=== PATIENT | male | born 1940 | race Caucasian/White ===

== ENCOUNTER 2017-05-09 17:45 | Inpatient (IN) ==
[2017-05-09] MEDS ORDERED: LORazepam 0.5 MG TABLET PO PRN (18:29)
[2017-05-09] MEDS ORDERED: HALOPERIDOL 0.5 MG TABLET PO PRN (18:29)
[2017-05-09] MEDS ORDERED: HALOPERIDOL 5 MG/ML INJECTION IM PRN (18:29)
[2017-05-09 18:31] VITALS: BMI 25.8
[2017-05-09] MEDS ORDERED: NITROGLYCERIN 0.4 MG SUBLINGUAL TABLET SL PRN (20:45)
[2017-05-09] MEDS ORDERED: NON-FORMULARY MEDICATION 1 EACH EACH (Oxybutynin Chloride [Oxybutynin Chloride] 5 MG) PO SCH (21:00)
[2017-05-09] MEDS: PRAVASTATIN 40 MG TABLET PO SCH (21:35)
[2017-05-10] MEDS: CARVEDILOL 6.25 MG TABLET PO SCH ×2 (08:32→17:14)
[2017-05-10] MEDS: FINASTERIDE 5 MG TABLET PO SCH (08:32)
[2017-05-10] MEDS: TAMSULOSIN 0.4 MG CAPSULE PO SCH (08:33)
[2017-05-10] MEDS ORDERED: TAMSULOSIN HCL 0.4 MG PO SCH (09:00)
--- NOTE | 2017-05-10 11:12 | History & Physical Report ---
History of Present Illness Date: 05/10/17 Chief complaint: worsening depression and paranoia HPI: Mr. Hensley is a 76-year-old male who resides in [place] with his . He was transferred here from [facility] emergency room after he was seen there for frequent falls. Patient has a history of spinal stenosis which causes his legs to go out from under him while he is walking. He attributes this to his frequent falls. He admits in the emergency room that he was concerned with himself mentally. He has not attempted suicide but has had frequent suicidal thoughts. Patient's had reported that patient has become increasingly more paranoid and delusional over the past 2 months. He believes someone is trying to take their home and he has called police several times even hired an washer hand. Despite reassurance that the house is not being taken, patient does not believe anyone. Patient does tell me that he thinks he would be better off in a shelter so he would not be a burden to his . He states he does not have good quality of life because he cannot do the things he enjoys such as hunting and fishing and golfing. He states "all I can do is watch TV, what kind of quality of life is that?" Patient has been seen outpatient at [facility] last week. This was his first meeting. In review of the chart, there is also information about patient obtaining a gun unbeknownst to his , after she removed all the guns from the house. Apparently she found a receipt for the gun he had purchased. In the emergency room, patient had basic labs and urinalysis and CT head performed. See results below. Review of Systems All systems PM: 10-point ROS was reviewed, no additional remarkable complaints except (back, leg and ankle pain related to spinal stenosis. Arthritis to hands. Blind in the right eye. Depression. He does also report that he straight catheters several times a day.) [facility] Medical history Hypertension Coronary artery disease (CABG 5 in [address] 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 Manuel in [place] Medications Home Medications Medication Instructions Recorded Confirmed Type Carvedilol [Carvedilol] 6.25 mg PO 05/09/17 05/09/17 History Finasteride [Proscar] 5 mg PO DAILY 05/09/17 05/09/17 History Nitroglycerin 0.4 mg SL PRN 05/09/17 05/09/17 History Oxybutynin Chloride 5 mg PO TID 05/09/17 05/09/17 History Pravastatin [Pravachol] 40 mg PO HS 05/09/17 05/09/17 History Tamsulosin HCl 0.4 mg PO DAILY 05/09/17 05/09/17 History Aspirin Chewable [ASA] 81 mg PO DAILY 05/10/17 05/10/17 History Allergies Allergy/AdvReac Type Severity Reaction Status Date / Time Penicillins Allergy Verified 05/10/17 02:51 Exam Vital Signs: Temperature 97.9 F 05/10/17 07:49 Pulse Rate 59 L 05/10/17 07:49 Respiratory Rate 18 05/10/17 07:49 Blood Pressure 155/67 H 05/10/17 07:49 Pulse Oximetry 98 05/10/17 07:49 Height/Weight/BMI: Height 1.75 m Weight 79.3 kg Body Mass Index 25.8 - Constitutional Present: no acute distress, well nourished, well developed - Routine HEENT Exam Head: Present: normocephalic, atraumatic Eye: Absent: PERRL (right eye with slight disconjugate gaze and opaque appearance to the cornea.), periorbital swelling ENT: Present: mucous membranes moist. Absent: dentition normal (edentulous. He usually wears dentures) - Routine Neck Exam Present: supple. Absent: lymphadenopathy, thyromegaly - Routine Respiratory Exam Present: CTA bilaterally. Absent: wheezes - Routine Cardiovascular Exam Present: RRR. Absent: murmur - Routine Abdominal Exam Present: soft, normoactive bowel sounds, non distended. Absent: tenderness - Routine Extremities Exam Present: no edema, normal capillary refill Comments: Arthritic changes especially to the thumbs bilaterally - Routine Skin Exam Present: dry, warm, wounds (large scabs on the right forearm and bandage to the left elbow.) - Routine Neurological Exam Present: alert, oriented X3, abnormal gait (slowed and stooped), moving all extremities, normal tone, normal speech. Absent: pronator drift, altered mental status, facial asymmetry Cranial nerves III through XII intact - Routine Psychiatric Exam Present: normal affect, cooperative Results - Labs Labs: Labs from 05/09/17 performed at [facility] ER WBC 6.3 RBC 5.3 hemoglobin 17.6 hematocrit 52.5 platelets 182 Urinalysis negative except trace blood and moderate leuks 1+ bacteria Creatinine 1.09, BUN 18, glucose 96, sodium 136, potassium 4.0, chloride 102, CO2 26, calcium 9.3, total bili 1.3, AST 40, L2 25 Drug of abuse screen is negative - Imaging and Cardiology CT scan - head Additional comments: 05/09/17-CT head without contrast on [facility] for [facility] Findings: The brain parenchyma demonstrates. Ventricular and subcortical areas of low attenuation most consistent with chronic ischemic microvascular disease.Occupying mass or shift of midline structures is evident. Intracranial hemorrhage or acute territorial infarct is evident. Impression no acute intracranial process. Assessment and Plan (1) Severe depression Current visit: Yes Status: Acute Assessment and Plan: Assessment Delusions and paranoia associated with severe depression Alcohol use Spinal stenosis causing chronic low back and lower extremity pain Hypertension Coronary artery disease (CABG 5 in March [address] 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 We'll need to monitor patient closely for alcohol withdrawal. PRN Serax and Ativan orders entered. Start thiamine, folate and multivitamin. Suspect he will have increased pain given he will not be able to medicate with alcohol. Will make acetaminophen available when necessary. Might consider scheduling this if he is having quite a bit of pain. Patient may self catheter as needed. Resuscitation Status: Full Code - Physician Narriative Physician: Kristen Gonzalez MD Narriative: 05/10/17 19:10 I have independently evaluated and examined this patient. I reviewed the chart, the patient's history, and the CLOUD PHYSICIST/PA's documented findings as above. We discussed and formulated the assessment and plan as above with additions as below: Mr. Hensley was hospitalized with worsening depressive symptoms and paranoia as described above. 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 In recent years he's also had major surgeries including a AAA repair and cardiac bypass surgery. He reported all "just too much". On examination the patient is pleasant and talkative. He has very minor ptosis on the right and the right pupil is larger than the left and does not react to light. EOMI, tongue midline, facial structures otherwise symmetric. Respirations nonlabored, breath sounds clear Cardiac rhythm regular Degenerative changes in the joints of the hand with some ulnar subluxation at the first MTPs Sensation intact 4 extremities although diminished below his knees by patient report to light touch, motor tone is normal but power is diminished especially in the lower extremities is unable to hold his legs off the bed against gentle resistance, has diminished dorsiflexion bilaterally with retained plantar flexion. Ash Handler are 4-/5, no drift of the upper extremities. Results from outside hospital ([facility]) reviewed; hemoglobin slightly elevated suggesting hemoconcentration. CT without acute process although chronic changes described. Lipids pending. Continue home medications for chronic medical problems, reassess hemoglobin and several days due to concern that patient may be somewhat hemoconcentrated on admission. In addition to above problems would include: #1 ambulatory dysfunction with falls. Hospital Course Summary Disclaimer: The visit summary below is not to be considered part of the above Progress Note. Hospital Course: Assessment Delusions and paranoia associated with severe depression Alcohol use Spinal stenosis causing chronic low back and lower extremity pain Hypertension Coronary artery disease (CABG 5 in March [address] 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 We'll need to monitor patient closely for alcohol withdrawal. PRN Serax and Ativan orders entered. Start thiamine, folate and multivitamin. Suspect he will have increased pain given he will not be able to medicate with alcohol. Will make acetaminophen available when necessary. Might consider scheduling this if he is having quite a bit of pain. Patient may self catheter as needed.
[2017-05-10] MEDS: ASPIRIN 81 MG CHEWABLE TABLET PO SCH (11:34)
[2017-05-10] MEDS ORDERED: ACETAMINOPHEN 500 MG TABLET PO PRN (11:47)
[2017-05-10] MEDS ORDERED: OXAZEPAM 30 MG CAPSULE PO PRN (11:53)
[2017-05-10] MEDS: DULOXETINE 30 MG CAPSULE PO SCH (14:28)
--- NOTE | 2017-05-10 14:41 | 24 Hour Neuropsychiatic Eval ---
Date of Admission: 05/09/17 17:45 Chief complaint: SI, psychosis History of Present Illness: Patient is a 76-year-old , retired male who was admitted to [facility] on 05/09/[address] [facility]. Patient lives in [place] with his . He went to ED due to multiple falls and while there endorsed SI, paranoia reported by . On interview, patient is pleasant and cooperative. He reports being very depressed, worse for the past year, exacerbated by pain due to stenosis and lifestyle changes due to this, including loss of interests/activities/ socialization. His continues to work/travel. He endorses low energy, low appetite with weight loss, suicidal thoughts but no intent/plan. He denies any psych history prior to 4 years ago when he began having chronic medical issues. He denies any psychotropic use. He went to [facility] for an evaluation but "told them he didn't want any harmful meds." He reports drinking 4-5 beers daily and denies any hx of withdrawal symptoms or seizures. However, seizures are listed in past medical history so must clarify this with someone other than patient. He does report being a cigar smoker (3-4/ day) for 40+ years though not currently. He denies other drug use or hx of substance use treatment. His has reported increasing paranoia, delusions that someone is trying to take the home - he has called the police, hired an deputy county attorney. He bought a gun without his 's knowledge after she removed them all from the house (he used to [place]); she found the receipt. He denies AVH. 05/09/17-CT head without contrast on [facility]: The brain parenchyma demonstrates. Ventricular and subcortical areas of low attenuation most consistent with chronic ischemic microvascular disease.Occupying mass or shift of midline structures is evident. Intracranial hemorrhage or acute territorial infarct is evident. Impression no acute intracranial process. Depression: Loss of Interest in Activities, Isolating Oneself From Friends and Family, Loss of Energy, Feelings of Worthlessness, Recurrent Thoughts of or Suicide, Changes in Appetite, Significant Weight Loss, Back Pain, Hopelessness, Unhappiness Psychosis: Delusions PFSH Patient Stated Medical History Cerebrovascular Accident Yes Seizures Yes Other HEENT Yes: detached retina -blind R eye, loss of vision L eye Congestive Heart Failure Yes Coronary Artery Disease Yes Hypertension Yes Chronic Obstructive Pulmonary Yes Disease (COPD) Gastroesophageal Reflux Yes Disease Hepatitis Yes Ulcer Yes Hx Kidney Stones Yes Other Yes: self cath 2-3 times daily Clotting Problems Yes: hx of DVT Osteoarthritis Yes Depression Yes Clinic Medical History Severe depression (Acute Medical) Surgical History: AAA repair, appendectomy, CABG 5 (2012), cholecystectomy, gastric bypass, thyroidectomy Family History: Denies any family history of mental illness - Social History Smoking status: Former smoker (previously smoked cigars. 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 Manuel in [place] Strengths: supportive , previously high-functioning, good verbal communication, wants help Review of Systems All systems: reviewed and no additional remarkable complaints except as stated - Constitutional Constitutional: Present: as per HPI, fatigue, headache(s) (mild currently), weakness (and multiple falls), weight loss - EENMT Eyes: Present: loss of vision (in R eye due to detached retina) Balance: Present: other (frequent falls recently) - Musculoskeletal Musculoskeletal: Present: back pain (due to stenosis) - Integumentary/Breasts Integumentary: Present: lesions (healing, from falls) - Neurological Neurological: Present: frequent falls - Psychiatric Psychiatric: Present: anhedonia, behavioral changes, depression, hopelessness, paranoia Mental Status Exam Vitals: Last Vital Signs Temp 97.9 F 05/10/17 07:49 Pulse 59 L 05/10/17 07:49 Resp 18 05/10/17 07:49 BP 155/67 H 05/10/17 07:49 Pulse Ox 98 05/10/17 07:49 Height: 1.75 m Weight: 79.3 kg - Mental Status Exam Muscle Strength/Tone: Weak Dressing: Casual Grooming: Good Attitude: Cooperative, Guarded (in regards to paranoia, gun, etc. reported by ) Motor Activity: Retardation Eye Contact: Good Speech: Normal Volume: Normal Rhythm: Appropriate Rhythm Sensory: Alert Orientation: Oriented X4 Mood: Depressed Affect: Sad, Depressed Rate of Thoughts: Appropriate Rate Thought Organization: Organized Associations: Intact Abstract Reasoning: Intact, able to abstract Thought Content: Delusions, Ruminations, Hopelessness, Helplessness, Worthlessness, Paranoia, Somatic Concerns Perception/Psychotic: Perception Normal Language: Naming Intact Fund of Knowledge: Appropriate Memory: Grossly Intact Suicidal Ideation: Persistent Homicidal Ideation: Denies Insight: Impaired Judgement: Impaired Impulse Control: Good Assessment and Plan (1) Major depressive disorder, single episode, severe with psychotic features Current visit: Yes Status: Acute R/O Major neurocognitive disorder (2) Alcohol use disorder Current visit: Yes Status: Acute (3) Spinal stenosis Current visit: Yes Status: Acute (4) Hypertension Current visit: Yes Status: Acute (5) CAD (coronary artery disease) Current visit: Yes Status: Acute (6) CHF (congestive heart failure) Current visit: Yes Status: Acute (7) COPD (chronic obstructive pulmonary disease) Current visit: Yes Status: Acute (8) History of hypothyroidism Current visit: Yes Status: Acute (9) History of pancreatitis Current visit: Yes Status: Acute (10) Chronic kidney disease Current visit: Yes Status: Acute (11) Right retinal detachment Current visit: Yes Status: Acute (12) History of hepatitis Current visit: Yes Status: Acute (13) History of kidney stones Current visit: Yes Status: Acute Admit to [facility] for evaluation and stabilization; maintain safety and elopement precautions. Review/order following labs done in outside hospital: CBC, CMP, TSH, UA, Vitamin B12 and folate levels. Obtain further collateral history from - will speak to her regarding searching home for more guns, removing all medications from patient's access. Plan to start Cymbalta 30mg PO daily to target mood, pain and monitor response. May also need antipsychotic. Will continue to monitor closely for signs of alcohol withdrawal.
[2017-05-10] MEDS ORDERED: MAG-AL + SIM ORAL LIQUID 30ml PO PRN (17:11)
[2017-05-10] MEDS: LATANOPROST 0.005% EYE DROPS 2.5ml LEFT EYE SCH (21:20)
[2017-05-10] MEDS: PRAVASTATIN 40 MG TABLET PO SCH (21:20)
[2017-05-11] MEDS: FINASTERIDE 5 MG TABLET PO SCH (08:17)
[2017-05-11] MEDS: CARVEDILOL 6.25 MG TABLET PO SCH ×2 (08:17→17:23)
[2017-05-11] MEDS: EYE LEFT EYE SCH (08:17)
[2017-05-11] MEDS: FOLIC ACID 1 MG TABLET PO SCH (08:17)
[2017-05-11] MEDS: SODIUM CHLORIDE 5% LEFT EYE SCH (08:17)
[2017-05-11] MEDS: MULTI-VITAMIN PLAIN TABLET PO SCH (08:17)
[2017-05-11] MEDS: ASPIRIN 81 MG CHEWABLE TABLET PO SCH (08:17)
[2017-05-11] MEDS: DULOXETINE 30 MG CAPSULE PO SCH (08:17)
[2017-05-11] MEDS: TAMSULOSIN 0.4 MG CAPSULE PO SCH (08:17)
[2017-05-11] MEDS: REFRESH CLASSIC Eye Drops 0.4ml RIGHT EYE SCH (09:38)
--- NOTE | 2017-05-11 16:25 | Neuropsych Progress Note ---
[facility] Subjective Date: 05/12/17 - Sujective/Severity of Illness Medications: Acetaminophen (Tylenol) 650 mg PO Q5H PRN PRN Reason: Discomfort Al Hydroxide/Mg Hydroxide (Maalox Plus) 30 ml PO Q4H PRN PRN Reason: Indigestion Last Admin: 05/10/17 17:16 Dose: 30 ml Artificial Tears (Refresh Classic) 1 drop RIGHT EYE DAILY [facility] Last Admin: 05/11/17 09:38 Dose: 1 drop Aspirin (Asa) 81 mg PO DAILY [facility] Last Admin: 05/11/17 08:17 Dose: 81 mg Carvedilol (Coreg) 6.25 mg PO [facility] Last Admin: 05/11/17 08:17 Dose: 6.25 mg Duloxetine HCl (Cymbalta) 30 mg PO DAILY [facility] Last Admin: 05/11/17 08:17 Dose: 30 mg Finasteride (Proscar) 5 mg PO DAILY [facility] Last Admin: 05/11/17 08:17 Dose: 5 mg Folic Acid (Folate) 1 mg PO DAILY [facility] Last Admin: 05/11/17 08:17 Dose: 1 mg Haloperidol (Haldol) 0.5 mg PO Q6H PRN PRN Reason: Extreme agitation Haloperidol Lactate (Haldol) 0.5 mg IM Q6H PRN PRN Reason: Extreme agitation Latanoprost (Xalatan) 1 drops LEFT EYE HS [facility] Last Admin: 05/10/17 21:20 Dose: 1 drops Lorazepam (Ativan) 0.5 mg PO Q6H PRN PRN Reason: Extreme agitation Lorazepam (Ativan Inj) 2 mg IM O PRN PRN Reason: Seizure activity Lorazepam (Ativan Inj) 1 mg IM ONCE PRN PRN Reason: Seizure activity Multivitamins (Theragran) 1 tab PO DAILY [facility] Last Admin: 05/11/17 08:17 Dose: 1 tab Nitroglycerin (Nitrostat) 0.4 mg SL PRN PRN Oxazepam (Serax) 30 mg PO Q1HR PRN PRN Reason: See comments below Oxybutynin Chloride (Ditropan) 5 mg PO TID [facility] Last Admin: 05/11/17 14:42 Dose: 5 mg Pravastatin Sodium (Pravachol) 40 mg PO HS [facility] Last Admin: 05/10/17 21:20 Dose: 40 mg Sodium Polystyrene Sulfonate (Esau-128) 1 applic LEFT EYE DAILY [facility] Last Admin: 05/11/17 08:17 Dose: 1 applic Tamsulosin HCl (Flomax) 0.4 mg PO DAILY [facility] Last Admin: 05/11/17 08:17 Dose: 0.4 mg Thiamine HCl (Vitamin B-1) 100 mg PO DAILY [facility] Last Admin: 05/11/17 08:17 Dose: 100 mg Subjective: Patient seen and chart reviewed. Case discussed with treatment team. On interview, patient is pleasant with me but continues to endorse depression, boredom, and refuse all suggestions I have for remediating this. He has limited insight into need to help himself improve his own quality of life and also continues to minimize alcohol use. Patient denies any HI or AVH. I continue to believe he is extremely high risk for suicide. Patient denies any adverse side effects related to psychotropic medications since starting Cymbalta. Nursing staff report patient can be condescending and mildly irritable at times but no significant behavioral difficulties. He has been adherent with medications. Patient slept 10.5 hours overnight. VSS. Patient is eating well. Psychotropic PRNs required in the past 24 hours: none. Start Time: 09:40 Stop Time: 10:00 Mental Status Exam Vitals: Last Vital Signs Temp 97.8 F 05/11/17 15:48 Pulse 52 L 05/11/17 15:48 Resp 20 05/11/17 15:48 BP 116/65 05/11/17 15:48 Pulse Ox 96 05/11/17 15:48 Height: 1.75 m Weight: 79.3 kg - Mental Status Exam Muscle Strength/Tone: Weak Dressing: Casual Grooming: Good Attitude: Cooperative, Guarded (in regards to paranoia, gun, etc. reported by ) Motor Activity: Retardation Eye Contact: Good Speech: Normal Volume: Normal Rhythm: Appropriate Rhythm Orientation: Oriented X4 Mood: Depressed Affect: Anxious Rate of Thoughts: Appropriate Rate Thought Organization: Organized Associations: Intact Abstract Reasoning: Intact, able to abstract Thought Content: Delusions, Ruminations, Hopelessness, Helplessness, Worthlessness, Paranoia, Somatic Concerns Perception/Psychotic: Perception Normal Language: Naming Intact Fund of Knowledge: Appropriate Memory: Grossly Intact Suicidal Ideation: Persistent Homicidal Ideation: Denies Insight: Impaired Judgement: Impaired Impulse Control: Good - Laboratory Result Diagrams: 05/12/17 07:03 05/12/17 07:03 Laboratory Results - last 24 hr 05/11/17 07:13 Hemoglobin A1c 5.3 Triglycerides 98 Cholesterol 152 LDL Cholesterol, Calc 75.4 VLDL Cholesterol 19.6 HDL Cholesterol 57 Cholesterol/HDL Ratio 2.7 Assessment and Plan (1) Major depressive disorder, single episode, severe with psychotic features Current visit: Yes Status: Acute (2) Alcohol use disorder Current visit: Yes Status: Acute (3) Spinal stenosis Current visit: Yes Status: Acute (4) Hypertension Current visit: Yes Status: Acute (5) CAD (coronary artery disease) Current visit: Yes Status: Acute (6) CHF (congestive heart failure) Current visit: Yes Status: Acute (7) COPD (chronic obstructive pulmonary disease) Current visit: Yes Status: Acute (8) History of hypothyroidism Current visit: Yes Status: Acute (9) History of pancreatitis Current visit: Yes Status: Acute (10) Chronic kidney disease Current visit: Yes Status: Acute (11) Right retinal detachment Current visit: Yes Status: Acute (12) History of hepatitis Current visit: Yes Status: Acute (13) History of kidney stones Current visit: Yes Status: Acute 05/11/17 Psych: Plan to continue current care, discuss symptoms, treatment and safety concerns with . Hospital Course Summary Disclaimer: The visit summary below is not to be considered part of the above Progress Note. Hospital Course: Assessment Delusions and paranoia associated with severe depression Alcohol use Spinal stenosis causing chronic low back and lower extremity pain Hypertension Coronary artery disease (CABG 5 in March [address] 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 We'll need to monitor patient closely for alcohol withdrawal. PRN Serax and Ativan orders entered. Start thiamine, folate and multivitamin. Suspect he will have increased pain given he will not be able to medicate with alcohol. Will make acetaminophen available when necessary. Might consider scheduling this if he is having quite a bit of pain. Patient may self catheter as needed. 05/10/17 Psych: Started Cymbalta 30mg PO daily to target depression, pain. 05/11/17 Psych: Plan to continue current care, discuss symptoms, treatment and safety concerns with .
[2017-05-11] MEDS: PRAVASTATIN 40 MG TABLET PO SCH (20:25)
[2017-05-11] MEDS: LATANOPROST 0.005% EYE DROPS 2.5ml LEFT EYE SCH (20:26)
[2017-05-12] MEDS: FINASTERIDE 5 MG TABLET PO SCH (08:27)
[2017-05-12] MEDS: DULOXETINE 30 MG CAPSULE PO SCH (08:27)
[2017-05-12] MEDS: REFRESH CLASSIC Eye Drops 0.4ml RIGHT EYE SCH (08:28)
[2017-05-12] MEDS: FOLIC ACID 1 MG TABLET PO SCH (08:28)
[2017-05-12] MEDS: CARVEDILOL 6.25 MG TABLET PO SCH ×2 (08:28→17:40)
[2017-05-12] MEDS: MULTI-VITAMIN PLAIN TABLET PO SCH (08:28)
[2017-05-12] MEDS: ASPIRIN 81 MG CHEWABLE TABLET PO SCH (08:28)
[2017-05-12] MEDS: TAMSULOSIN 0.4 MG CAPSULE PO SCH (08:29)
[2017-05-12] MEDS: SODIUM CHLORIDE 5% LEFT EYE SCH (08:29)
[2017-05-12] MEDS: EYE LEFT EYE SCH (08:29)
--- NOTE | 2017-05-12 10:34 | Progress Note ---
- Date 05/12/17 Subjective: Patient was seen today sitting in the TV room. He reports he is doing well. He has no concerns. States he's trying to talk his into not driving 100 miles to come see him. He is oriented to self and date. When asked if he knew what today was he told me that Tuesday was the th, thus today is the . No chest pain or shortness of breath. States he is sleeping well although he didn't sleep well the night before. Appetite is okay. Has had no problems with self cathetering. Objective Vital signs: Temperature 97.2 F 05/12/17 08:00 Pulse Rate 50 L 05/12/17 08:00 Respiratory Rate 18 05/12/17 08:00 Blood Pressure 118/66 05/12/17 08:00 Pulse Oximetry 97 05/12/17 08:00 Height/Weight/BMI: Height 1.75 m Weight 79.3 kg Body Mass Index 25.8 - Constitutional Present: no acute distress, well nourished, well developed - Routine Respiratory Exam Present: CTA bilaterally. Absent: wheezes - Routine Cardiovascular Exam Present: RRR. Absent: murmur - Routine Abdominal Exam Present: soft, normoactive bowel sounds, non distended. Absent: tenderness - Routine Extremities Exam Present: no edema, normal capillary refill - Routine Skin Exam Present: dry, warm - Routine Neurological Exam Present: alert, moving all extremities, normal speech - Routine Lymphatic Exam Lymphatic: Absent: adenopathy - Routine Psychiatric Exam Present: normal affect, cooperative Results - Labs CBC & Chem 7: 05/12/17 07:03 05/12/17 07:03 Assessment and Plan (1) Severe depression Current visit: Yes Status: Acute Assessment and Plan: Assessment Delusions and paranoia associated with severe depression Alcohol use Spinal stenosis causing chronic low back and lower extremity pain Hypertension Coronary artery disease (CABG 5 in [address] 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 His chart was reviewed including vitals, labs , and nurse's notes and psychiatry notes. He has not had any withdrawal symptoms or need for Serax. Hospital Course Summary Disclaimer: The visit summary below is not to be considered part of the above Progress Note. Hospital Course: Assessment Delusions and paranoia associated with severe depression Alcohol use Spinal stenosis causing chronic low back and lower extremity pain Hypertension Coronary artery disease (CABG 5 in [address] 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 We'll need to monitor patient closely for alcohol withdrawal. PRN Serax and Ativan orders entered. Start thiamine, folate and multivitamin. Suspect he will have increased pain given he will not be able to medicate with alcohol. Will make acetaminophen available when necessary. Might consider scheduling this if he is having quite a bit of pain. Patient may self catheter as needed. 05/12/17 Patient appears medically stable. His chart was reviewed including vitals, labs , and nurse's notes and psychiatry notes. He has not had any withdrawal symptoms or need for Serax.
[2017-05-12] MEDS: ARIPiprazole 2 MG TABLET PO SCH (15:43)
[2017-05-12] MEDS: PRAVASTATIN 40 MG TABLET PO SCH (20:13)
[2017-05-12] MEDS: LATANOPROST 0.005% EYE DROPS 2.5ml LEFT EYE SCH (20:13)
--- NOTE | 2017-05-12 21:54 | Neuropsych Progress Note ---
[facility] Subjective Date: 05/12/17 - Sujective/Severity of Illness Medications: Acetaminophen (Tylenol) 650 mg PO Q5H PRN PRN Reason: Discomfort Al Hydroxide/Mg Hydroxide (Maalox Plus) 30 ml PO Q4H PRN PRN Reason: Indigestion Last Admin: 05/10/17 17:16 Dose: 30 ml Aripiprazole (Abilify) 1 mg PO DAILY [facility] Last Admin: 05/12/17 15:43 Dose: 1 mg Artificial Tears (Refresh Classic) 1 drop RIGHT EYE DAILY [facility] Last Admin: 05/12/17 08:28 Dose: 1 drop Aspirin (Asa) 81 mg PO DAILY [facility] Last Admin: 05/12/17 08:28 Dose: 81 mg Carvedilol (Coreg) 6.25 mg PO [facility] Last Admin: 05/12/17 17:40 Dose: 6.25 mg Duloxetine HCl (Cymbalta) 30 mg PO DAILY [facility] Last Admin: 05/12/17 08:27 Dose: 30 mg Finasteride (Proscar) 5 mg PO DAILY [facility] Last Admin: 05/12/17 08:27 Dose: 5 mg Folic Acid (Folate) 1 mg PO DAILY [facility] Last Admin: 05/12/17 08:28 Dose: 1 mg Haloperidol (Haldol) 0.5 mg PO Q6H PRN PRN Reason: Extreme agitation Haloperidol Lactate (Haldol) 0.5 mg IM Q6H PRN PRN Reason: Extreme agitation Latanoprost (Xalatan) 1 drops LEFT EYE HS [facility] Last Admin: 05/12/17 20:13 Dose: 1 drops Lorazepam (Ativan) 0.5 mg PO Q6H PRN PRN Reason: Extreme agitation Lorazepam (Ativan Inj) 2 mg IM O PRN PRN Reason: Seizure activity Lorazepam (Ativan Inj) 1 mg IM ONCE PRN PRN Reason: Seizure activity Multivitamins (Theragran) 1 tab PO DAILY [facility] Last Admin: 05/12/17 08:28 Dose: 1 tab Nitroglycerin (Nitrostat) 0.4 mg SL PRN PRN Oxazepam (Serax) 30 mg PO Q1HR PRN PRN Reason: See comments below Oxybutynin Chloride (Ditropan) 5 mg PO TID [facility] Last Admin: 05/12/17 20:13 Dose: 5 mg Pravastatin Sodium (Pravachol) 40 mg PO HS [facility] Last Admin: 05/12/17 20:13 Dose: 40 mg Sodium Polystyrene Sulfonate (Esau-128) 1 applic LEFT EYE DAILY [facility] Last Admin: 05/12/17 08:29 Dose: 1 applic Tamsulosin HCl (Flomax) 0.4 mg PO DAILY [facility] Last Admin: 05/12/17 08:29 Dose: 0.4 mg Thiamine HCl (Vitamin B-1) 100 mg PO DAILY [facility] Last Admin: 05/12/17 08:29 Dose: 100 mg Subjective: Patient seen and chart reviewed. Case discussed with treatment team. On interview, patient is pleasant with me but continues to endorse depression, boredom, and refuse all suggestions I have for remediating this. He has limited insight into need to help himself improve his own quality of life and also continues to minimize alcohol use. I specifically asked him to think about how he can help himself and discussed behavioral activation techniques. He has mentioned to SW wanting to live somewhere separate from or even possibly divorce - this is quite concerning to me given patient's high suicide risk. He does admit to having "some anxieties" about people trying to take his possessions and is willing to admit some of this may be in his head. Patient denies any HI or AVH. Patient denies any adverse side effects related to psychotropic medications since starting Cymbalta. Nursing staff report patient can be condescending and mildly irritable at times but no significant behavioral difficulties. He has been adherent with medications. Yesterday his was visiting and a friend (who happens to be a realtor) called her. He became paranoid, asking her to leave the visit and instead go check on their house to make sure it was okay. Patient slept 6.25 hours overnight. VSS. Patient is eating well. Psychotropic PRNs required in the past 24 hours: none. I had a lengthy discussion with his today regarding diagnosis, treatment options, recommendations for safety and living after discharge. She has cleared house of all firearms and agrees to lock all medications from his access. I recommended 24/7 supervision for safety after discharge and continued mental health treatment, which she is in agreement with. Start Time: 10:40 Stop Time: 11:10 Care: >50% of this visit spent in counseling/coordination care. Mental Status Exam Vitals: Last Vital Signs Temp 98.0 F 05/12/17 16:00 Pulse 54 L 05/12/17 21:53 Resp 16 05/12/17 21:53 BP 105/57 05/12/17 21:53 Pulse Ox 94 05/12/17 21:53 Height: 1.75 m Weight: 79.3 kg - Mental Status Exam Muscle Strength/Tone: Weak Dressing: Casual Grooming: Good Attitude: Cooperative, Guarded (in regards to paranoia, gun, etc. reported by ) Motor Activity: Retardation Eye Contact: Good Speech: Normal Volume: Normal Rhythm: Appropriate Rhythm Orientation: Oriented X4 Mood: Depressed Affect: Sad Rate of Thoughts: Appropriate Rate Thought Organization: Organized Associations: Intact Abstract Reasoning: Intact, able to abstract Thought Content: Delusions, Ruminations, Hopelessness, Helplessness, Worthlessness, Paranoia, Somatic Concerns Perception/Psychotic: Perception Normal Language: Naming Intact Fund of Knowledge: Appropriate Memory: Grossly Intact Suicidal Ideation: Persistent Homicidal Ideation: Denies Insight: Impaired Judgement: Impaired Impulse Control: Fair - Laboratory Result Diagrams: 05/12/17 07:03 05/12/17 07:03 Laboratory Results - last 24 hr 05/12/17 05/12/17 07:03 07:03 WBC 5.4 RBC 4.96 Hgb 15.9 Hct 49.1 MCV 99.0 MCH 32.1 MCHC 32.4 RDW Std Deviation 49.6 Plt Count 145 MPV 11.5 Immature Gran % (Auto) 0.2 Neut % (Auto) 63.5 Lymph % (Auto) 22.3 L [place] % (Auto) 9.3 H Eos % (Auto) 4.1 H Baso % (Auto) 0.6 Neut # (Auto) 3.4 Lymph # (Auto) 1.2 [place] # (Auto) 0.5 Eos # (Auto) 0.2 Baso # (Auto) 0.0 Abs Immat Gran (auto) 0.01 Turbidity < 20 Sodium 140 Potassium 4.5 Chloride 104 Carbon Dioxide 29 Anion Gap 7 BUN 16.0 Creatinine 1.0 GFR Calculation 72 BUN/Creatinine Ratio 16 Glucose 102 Calculated Osmolality 270 Calcium 8.9 Total Bilirubin 0.70 Icterus Index < 2 AST 32 ALT 36 Alkaline Phosphatase 59 Total Protein 7.0 Albumin 4.0 Globulin 3.0 Albumin/Globulin Ratio 1.3 Specimen Hemolysis < 15 Assessment and Plan (1) Major depressive disorder, single episode, severe with psychotic features Current visit: Yes Status: Acute R/O Neurocognitive disorder (2) Alcohol use disorder Current visit: Yes Status: Acute (3) Spinal stenosis Current visit: Yes Status: Acute (4) Hypertension Current visit: Yes Status: Acute (5) CAD (coronary artery disease) Current visit: Yes Status: Acute (6) CHF (congestive heart failure) Current visit: Yes Status: Acute (7) COPD (chronic obstructive pulmonary disease) Current visit: Yes Status: Acute (8) History of hypothyroidism Current visit: Yes Status: Acute (9) History of pancreatitis Current visit: Yes Status: Acute (10) Chronic kidney disease Current visit: Yes Status: Acute (11) Right retinal detachment Current visit: Yes Status: Acute (12) History of hepatitis Current visit: Yes Status: Acute (13) History of kidney stones Current visit: Yes Status: Acute 05/12/17 Psych: Start Abilify 1mg PO daily this morning to target paranoia, as an adjunct for antidepressant. Risks and benefits discussed in detail with . Have asked patient to think about ways he can help himself come out of depression. Monitor mood, behavior, response to treatment. Hospital Course Summary Disclaimer: The visit summary below is not to be considered part of the above Progress Note. Hospital Course: Assessment Delusions and paranoia associated with severe depression Alcohol use Spinal stenosis causing chronic low back and lower extremity pain Hypertension Coronary artery disease (CABG 5 in [address] 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 We'll need to monitor patient closely for alcohol withdrawal. PRN Serax and Ativan orders entered. Start thiamine, folate and multivitamin. Suspect he will have increased pain given he will not be able to medicate with alcohol. Will make acetaminophen available when necessary. Might consider scheduling this if he is having quite a bit of pain. Patient may self catheter as needed. 05/10/17 Psych: Started Cymbalta 30mg PO daily to target depression, pain. 05/11/17 Psych: Plan to continue current care, discuss symptoms, treatment and safety concerns with . 05/12/17 Psych: Start Abilify 1mg PO daily in AM to target paranoia/delusions.
[2017-05-13] MEDS: ARIPiprazole 2 MG TABLET PO SCH (08:45)
[2017-05-13] MEDS: TAMSULOSIN 0.4 MG CAPSULE PO SCH (08:46)
[2017-05-13] MEDS: CARVEDILOL 6.25 MG TABLET PO SCH ×2 (08:46→17:16)
[2017-05-13] MEDS: MULTI-VITAMIN PLAIN TABLET PO SCH (08:46)
[2017-05-13] MEDS: FOLIC ACID 1 MG TABLET PO SCH (08:46)
[2017-05-13] MEDS: ASPIRIN 81 MG CHEWABLE TABLET PO SCH (08:46)
[2017-05-13] MEDS: DULOXETINE 30 MG CAPSULE PO SCH (08:46)
[2017-05-13] MEDS: FINASTERIDE 5 MG TABLET PO SCH (08:46)
[2017-05-13] MEDS: SODIUM CHLORIDE 5% LEFT EYE SCH (08:47)
[2017-05-13] MEDS: REFRESH CLASSIC Eye Drops 0.4ml RIGHT EYE SCH (08:47)
[2017-05-13] MEDS: EYE LEFT EYE SCH (08:47)
--- NOTE | 2017-05-13 09:49 | Neuropsych Progress Note ---
[facility] Subjective Date: 05/13/17 - Sujective/Severity of Illness Medications: Acetaminophen (Tylenol) 650 mg PO Q5H PRN PRN Reason: Discomfort Al Hydroxide/Mg Hydroxide (Maalox Plus) 30 ml PO Q4H PRN PRN Reason: Indigestion Last Admin: 05/10/17 17:16 Dose: 30 ml Aripiprazole (Abilify) 1 mg PO DAILY [facility] Last Admin: 05/13/17 08:45 Dose: 1 mg Artificial Tears (Refresh Classic) 1 drop RIGHT EYE DAILY [facility] Last Admin: 05/13/17 08:47 Dose: 1 drop Aspirin (Asa) 81 mg PO DAILY [facility] Last Admin: 05/13/17 08:46 Dose: 81 mg Carvedilol (Coreg) 6.25 mg PO [facility] Last Admin: 05/13/17 08:46 Dose: 6.25 mg Duloxetine HCl (Cymbalta) 30 mg PO DAILY [facility] Last Admin: 05/13/17 08:46 Dose: 30 mg Finasteride (Proscar) 5 mg PO DAILY [facility] Last Admin: 05/13/17 08:46 Dose: 5 mg Folic Acid (Folate) 1 mg PO DAILY [facility] Last Admin: 05/13/17 08:46 Dose: 1 mg Haloperidol (Haldol) 0.5 mg PO Q6H PRN PRN Reason: Extreme agitation Haloperidol Lactate (Haldol) 0.5 mg IM Q6H PRN PRN Reason: Extreme agitation Latanoprost (Xalatan) 1 drops LEFT EYE HS [facility] Last Admin: 05/12/17 20:13 Dose: 1 drops Lorazepam (Ativan) 0.5 mg PO Q6H PRN PRN Reason: Extreme agitation Lorazepam (Ativan Inj) 2 mg IM O PRN PRN Reason: Seizure activity Lorazepam (Ativan Inj) 1 mg IM ONCE PRN PRN Reason: Seizure activity Multivitamins (Theragran) 1 tab PO DAILY [facility] Last Admin: 05/13/17 08:46 Dose: 1 tab Nitroglycerin (Nitrostat) 0.4 mg SL PRN PRN Oxazepam (Serax) 30 mg PO Q1HR PRN PRN Reason: See comments below Oxybutynin Chloride (Ditropan) 5 mg PO TID [facility] Last Admin: 05/13/17 08:46 Dose: 5 mg Pravastatin Sodium (Pravachol) 40 mg PO HS [facility] Last Admin: 05/12/17 20:13 Dose: 40 mg Sodium Polystyrene Sulfonate (Esau-128) 1 applic LEFT EYE DAILY [facility] Last Admin: 05/13/17 08:47 Dose: 1 applic Tamsulosin HCl (Flomax) 0.4 mg PO DAILY [facility] Last Admin: 05/13/17 08:46 Dose: 0.4 mg Thiamine HCl (Vitamin B-1) 100 mg PO DAILY [facility] Last Admin: 05/13/17 08:46 Dose: 100 mg Subjective: Patient seen and chart reviewed. Case discussed with treatment team. Patient is sleeping at time of rounds. MSE below based in part on my last interaction with him. Patient denies any HI or AVH. Patient denies any adverse side effects related to psychotropic medications since starting Cymbalta. I believe he continues to be a high risk for suicide if discharged. Nursing staff report patient can be condescending and mildly irritable at times but no significant behavioral difficulties. He has had intermittent anxiety on the unit and then often deflects when attempted to engage about depressive symptoms or alcohol use. He has been adherent with medications. He has had limited self-care (doesn't want to brush teeth, doesn't wash hands before using straight cath, etc. Patient slept 8.25 hours overnight. VSS. Patient is eating well. Psychotropic PRNs required in the past 24 hours: none. I had a lengthy discussion with his on 05/12 regarding diagnosis, treatment options, recommendations for safety and living after discharge. She has cleared house of all firearms and agrees to lock all medications from his access. I recommended 20/12 supervision for safety after discharge and continued mental health treatment, which she is in agreement with. Start Time: 07:40 Stop Time: 08:00 Mental Status Exam Vitals: Last Vital Signs Temp 98.3 F 05/13/17 08:00 Pulse 52 L 05/13/17 08:00 Resp 16 05/13/17 08:00 BP 155/73 H 05/13/17 08:00 Pulse Ox 99 05/13/17 08:00 Height: 1.75 m Weight: 79.3 kg - Mental Status Exam Muscle Strength/Tone: Weak Dressing: Casual Grooming: Good Attitude: Cooperative, Guarded (in regards to paranoia, gun, etc. reported by ) Motor Activity: Retardation Eye Contact: Good Speech: Normal Volume: Normal Rhythm: Appropriate Rhythm Orientation: Oriented X4 Mood: Depressed Rate of Thoughts: Appropriate Rate Thought Organization: Organized Associations: Intact Abstract Reasoning: Intact, able to abstract Thought Content: Delusions, Ruminations, Hopelessness, Helplessness, Worthlessness, Paranoia, Somatic Concerns Perception/Psychotic: Perception Normal Language: Naming Intact Fund of Knowledge: Appropriate Memory: Grossly Intact Suicidal Ideation: Persistent Homicidal Ideation: Denies Insight: Impaired Judgement: Impaired Impulse Control: Fair - Laboratory Result Diagrams: 05/12/17 07:03 05/12/17 07:03 Assessment and Plan (1) Major depressive disorder, single episode, severe with psychotic features Current visit: Yes Status: Acute (2) Alcohol use disorder Current visit: Yes Status: Acute (3) Spinal stenosis Current visit: Yes Status: Acute (4) Hypertension Current visit: Yes Status: Acute (5) CAD (coronary artery disease) Current visit: Yes Status: Acute (6) CHF (congestive heart failure) Current visit: Yes Status: Acute (7) COPD (chronic obstructive pulmonary disease) Current visit: Yes Status: Acute (8) History of hypothyroidism Current visit: Yes Status: Acute (9) History of pancreatitis Current visit: Yes Status: Acute (10) Chronic kidney disease Current visit: Yes Status: Acute (11) Right retinal detachment Current visit: Yes Status: Acute (12) History of hepatitis Current visit: Yes Status: Acute (13) History of kidney stones Current visit: Yes Status: Acute Continue current care for the time being and assess response/tolerance to starting Abilify. Will likely increase Cymbalta to 30mg PO BID soon to target mood, pain. Hospital Course Summary Disclaimer: The visit summary below is not to be considered part of the above Progress Note. Hospital Course: Assessment Delusions and paranoia associated with severe depression Alcohol use Spinal stenosis causing chronic low back and lower extremity pain Hypertension Coronary artery disease (CABG 5 in March [address] 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 We'll need to monitor patient closely for alcohol withdrawal. PRN Serax and Ativan orders entered. Start thiamine, folate and multivitamin. Suspect he will have increased pain given he will not be able to medicate with alcohol. Will make acetaminophen available when necessary. Might consider scheduling this if he is having quite a bit of pain. Patient may self catheter as needed. 05/10/17 Psych: Started Cymbalta 30mg PO daily to target depression, pain. 05/11/17 Psych: Plan to continue current care, discuss symptoms, treatment and safety concerns with . 05/12/17 Psych: Start Abilify 1mg PO daily in AM to target paranoia/delusions. 05/13/17 Psych: Continue current care for the time being and assess response/ tolerance to starting Abilify. Will likely increase Cymbalta to 30mg PO BID soon to target mood, pain.
[2017-05-13] MEDS ORDERED: NS 100 ML ONE (15:42)
[2017-05-13] MEDS ORDERED: IOHEXOL 300mg/ml 50ml INJECTION ONE (15:42)
[2017-05-13] MEDS ORDERED: SALINE FLUSH 10ml SYRINGE ONE (15:42)
--- NOTE | 2017-05-13 16:32 | CT Scan Report ---
Indication: Psychosis PROCEDURE: CT head/brain wo/w con: Encounter: Initial Comparison: None. FINDINGS: There is mild prominence of the ventricles and sulci compatible with cortical atrophy. There is no mass, mass effect, or midline shift. No evidence for intracranial hemorrhage. No intra or extra-axial fluid collections. No evidence for depressed skull fracture. The included portions of the sinuses are clear. IMPRESSION: Mild cortical atrophy. No evidence for acute cortical infarct, intracranial hemorrhage, or mass. .
--- NOTE | 2017-05-13 19:11 | Progress Note ---
- Date 05/13/17 Subjective: I was called to assess Kai after a fall. He reports that he was sitting in the recliner with his feet elevated on the foot rest. He was trying to get out of the chair to find the phone to call his , but as he tried to push it down , he fell out of the chair. However, this event was caught on video, and in the video he was walking in the room (with a limp) and tried to kick the footrest on the recliner back down. He lost his balance and fell backwards and slightly left, and struck the left side of head on the wall. He did not lose consciousness. He has some pain where he struck his head but denies any focal neuro deficits other than his chronic problems - right eye blindness and chronic left leg tingling. No chest pain or dyspnea. Objective Vital signs: Temperature 97.4 F 05/13/17 16:00 Pulse Rate 57 L 05/13/17 16:00 Respiratory Rate 18 05/13/17 16:00 Blood Pressure 146/67 H 05/13/17 16:00 Pulse Oximetry 96 05/13/17 16:00 Height/Weight/BMI: Height 1.75 m Weight 79.3 kg Body Mass Index 25.8 - Constitutional Present: no acute distress, well nourished, well developed - Routine HEENT Exam Head: Present: normocephalic, atraumatic. Absent: laceration, hematoma, facial swelling Eye: Present: EOMI. Absent: PERRL (right pupil is dilated and unreactive), conjunctival icterus, scleral injection ENT: Present: mucous membranes moist, oropharynx clear. Absent: dentition normal (dentures in place) - Routine Respiratory Exam Present: CTA bilaterally - Routine Cardiovascular Exam Present: RRR, S1, S2, murmur - Routine Abdominal Exam Present: soft, normoactive bowel sounds, non distended, non tender - Routine Extremities Exam Present: no edema, pulses intact, normal capillary refill - Routine Musculoskeletal Exam Musculoskeletal: Present: moving extremities well, limp with gait - Routine Skin Exam Present: intact, dry, warm - Routine Neurological Exam Present: alert, CN II-XII intact (with exception of right pupil response), moving all extremities, hearing grossly intact, normal speech. Absent: sensory deficit (no deficits to face or upper ext.), motor deficit (upper and lower extremities are equal b/l in all tested muscle groups), altered mental status, facial asymmetry - Routine Psychiatric Exam Present: normal affect, normal thought process, cooperative Results - Labs CBC & Chem 7: 05/12/17 07:03 05/12/17 07:03 Assessment and Plan (1) Severe depression Current visit: Yes Status: Acute Assessment and Plan: Assessment Fall on 05/13/17, with minor head injury Delusions and paranoia associated with severe depression Alcohol use Spinal stenosis causing chronic low back and lower extremity pain Hypertension Coronary artery disease (CABG [address] 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 Neurovascularly intact and VSS. Will have nsg staff repeat neuro checks tonight and again in am. Labs done on 05/12/17 were very stable. Hold ASA on . Head CT done earlier today was negative for acute findings. Resuscitation Status: Full Code - Physician Narrative Narrative: Date: 05/13/17 Time: 1906 Hospital Course Summary Disclaimer: The visit summary below is not to be considered part of the above Progress Note. Hospital Course: Assessment Delusions and paranoia associated with severe depression Alcohol use Spinal stenosis causing chronic low back and lower extremity pain Hypertension Coronary artery disease (CABG 5 in [address] 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 We'll need to monitor patient closely for alcohol withdrawal. PRN Serax and Ativan orders entered. Start thiamine, folate and multivitamin. Suspect he will have increased pain given he will not be able to medicate with alcohol. Will make acetaminophen available when necessary. Might consider scheduling this if he is having quite a bit of pain. Patient may self catheter as needed. 05/10/17 Psych: Started Cymbalta 30mg PO daily to target depression, pain. 05/11/17 Psych: Plan to continue current care, discuss symptoms, treatment and safety concerns with . 05/12/17 Psych: Start Abilify 1mg PO daily in AM to target paranoia/delusions. 05/13/17 Psych: Continue current care for the time being and assess response/ tolerance to starting Abilify. Will likely increase Cymbalta to 30mg PO BID soon to target mood, pain. 05/13/17 19:18 Fall without LOC on 05/13/17, minor head injury with pain to left parietal region. Neurovascularly intact and VSS. Will have nsg staff repeat neuro checks tonight and again in am. Labs done on 05/12/17 were very stable. Hold ASA on . Head CT done earlier today was negative for acute findings.
[2017-05-13] MEDS: PRAVASTATIN 40 MG TABLET PO SCH (20:01)
[2017-05-13] MEDS: LATANOPROST 0.005% EYE DROPS 2.5ml LEFT EYE SCH (20:01)
[2017-05-14] MEDS: MULTI-VITAMIN PLAIN TABLET PO SCH (08:12)
[2017-05-14] MEDS: FOLIC ACID 1 MG TABLET PO SCH (08:12)
[2017-05-14] MEDS: REFRESH CLASSIC Eye Drops 0.4ml RIGHT EYE SCH (08:13)
[2017-05-14] MEDS: SODIUM CHLORIDE 5% LEFT EYE SCH (08:13)
[2017-05-14] MEDS: EYE LEFT EYE SCH (08:13)
[2017-05-14] MEDS: CARVEDILOL 6.25 MG TABLET PO SCH ×2 (08:13→17:30)
[2017-05-14] MEDS: FINASTERIDE 5 MG TABLET PO SCH (08:13)
[2017-05-14] MEDS: DULOXETINE 30 MG CAPSULE PO SCH (08:13)
[2017-05-14] MEDS: TAMSULOSIN 0.4 MG CAPSULE PO SCH (08:13)
[2017-05-14] MEDS: ARIPiprazole 2 MG TABLET PO SCH (08:13)
--- NOTE | 2017-05-14 17:44 | Neuropsych Progress Note ---
[facility] Subjective Date: 05/14/17 - Sujective/Severity of Illness Medications: Acetaminophen (Tylenol) 650 mg PO Q5H PRN PRN Reason: Discomfort Al Hydroxide/Mg Hydroxide (Maalox Plus) 30 ml PO Q4H PRN PRN Reason: Indigestion Last Admin: 05/10/17 17:16 Dose: 30 ml Aripiprazole (Abilify) 1 mg PO DAILY [facility] Last Admin: 05/14/17 08:13 Dose: 1 mg Artificial Tears (Refresh Classic) 1 drop RIGHT EYE DAILY [facility] Last Admin: 05/14/17 08:13 Dose: 1 drop Aspirin (Asa) 81 mg PO DAILY [facility] Last Admin: 05/13/17 08:46 Dose: 81 mg Carvedilol (Coreg) 6.25 mg PO [facility] Last Admin: 05/14/17 17:30 Dose: 6.25 mg Duloxetine HCl (Cymbalta) 30 mg PO DAILY [facility] Last Admin: 05/14/17 08:13 Dose: 30 mg Finasteride (Proscar) 5 mg PO DAILY [facility] Last Admin: 05/14/17 08:13 Dose: 5 mg Folic Acid (Folate) 1 mg PO DAILY [facility] Last Admin: 05/14/17 08:12 Dose: 1 mg Haloperidol (Haldol) 0.5 mg PO Q6H PRN PRN Reason: Extreme agitation Haloperidol Lactate (Haldol) 0.5 mg IM Q6H PRN PRN Reason: Extreme agitation Latanoprost (Xalatan) 1 drops LEFT EYE HS [facility] Last Admin: 05/13/17 20:01 Dose: 1 drops Lorazepam (Ativan) 0.5 mg PO Q6H PRN PRN Reason: Extreme agitation Lorazepam (Ativan Inj) 2 mg IM O PRN PRN Reason: Seizure activity Lorazepam (Ativan Inj) 1 mg IM ONCE PRN PRN Reason: Seizure activity Multivitamins (Theragran) 1 tab PO DAILY [facility] Last Admin: 05/14/17 08:12 Dose: 1 tab Nitroglycerin (Nitrostat) 0.4 mg SL PRN PRN Oxazepam (Serax) 30 mg PO Q1HR PRN PRN Reason: See comments below Oxybutynin Chloride (Ditropan) 5 mg PO TID [facility] Last Admin: 05/14/17 15:34 Dose: 5 mg Pravastatin Sodium (Pravachol) 40 mg PO HS [facility] Last Admin: 05/13/17 20:01 Dose: 40 mg Sodium Polystyrene Sulfonate (Esau-128) 1 applic LEFT EYE DAILY [facility] Last Admin: 05/14/17 08:13 Dose: 1 applic Tamsulosin HCl (Flomax) 0.4 mg PO DAILY [facility] Last Admin: 05/14/17 08:13 Dose: 0.4 mg Thiamine HCl (Vitamin B-1) 100 mg PO DAILY [facility] Last Admin: 05/14/17 08:13 Dose: 100 mg Subjective: Patient seen and chart reviewed. Nursing reports pt doing well. Sleeping well and has a good appetite. On face to face the pt is pleasant. He states his mood is improved. He discussed his numerous health issues which have contributed to his depression. He denies any S/I and reports tolerating his medication well. Start Time: 11:00 Stop Time: 11:15 Mental Status Exam Vitals: Last Vital Signs Temp 98.2 F 05/14/17 16:00 Pulse 54 L 05/14/17 16:00 Resp 20 05/14/17 16:00 BP 129/64 05/14/17 16:00 Pulse Ox 97 05/14/17 16:00 Height: 1.75 m Weight: 79.3 kg - Mental Status Exam Muscle Strength/Tone: Weak Dressing: Casual Grooming: Good Attitude: Cooperative, Guarded (in regards to paranoia, gun, etc. reported by ) Motor Activity: Retardation Eye Contact: Good Speech: Normal Volume: Normal Rhythm: Appropriate Rhythm Orientation: Oriented X4 Mood: Depressed Rate of Thoughts: Appropriate Rate Thought Organization: Organized Associations: Intact Abstract Reasoning: Intact, able to abstract Thought Content: Delusions, Ruminations, Hopelessness, Helplessness, Worthlessness, Paranoia, Somatic Concerns Perception/Psychotic: Perception Normal Language: Naming Intact Fund of Knowledge: Appropriate Memory: Grossly Intact Suicidal Ideation: Persistent Homicidal Ideation: Denies Insight: Impaired Judgement: Impaired Impulse Control: Fair - Laboratory Result Diagrams: 05/12/17 07:03 05/12/17 07:03 Assessment and Plan (1) Major depressive disorder, single episode, severe with psychotic features Current visit: Yes Status: Acute (2) Spinal stenosis Current visit: Yes Status: Acute (3) Hypertension Current visit: Yes Status: Acute (4) CAD (coronary artery disease) Current visit: Yes Status: Acute (5) CHF (congestive heart failure) Current visit: Yes Status: Acute (6) COPD (chronic obstructive pulmonary disease) Current visit: Yes Status: Acute (7) History of hypothyroidism Current visit: Yes Status: Acute (8) History of pancreatitis Current visit: Yes Status: Acute (9) Chronic kidney disease Current visit: Yes Status: Acute (10) Right retinal detachment Current visit: Yes Status: Acute (11) History of hepatitis Current visit: Yes Status: Acute (12) History of kidney stones Current visit: Yes Status: Acute (13) Alcohol use disorder Current visit: Yes Status: Acute Hospital Course Summary Disclaimer: The visit summary below is not to be considered part of the above Progress Note. Hospital Course: Assessment Delusions and paranoia associated with severe depression Alcohol use Spinal stenosis causing chronic low back and lower extremity pain Hypertension Coronary artery disease (CABG 5 in [address] 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 We'll need to monitor patient closely for alcohol withdrawal. PRN Serax and Ativan orders entered. Start thiamine, folate and multivitamin. Suspect he will have increased pain given he will not be able to medicate with alcohol. Will make acetaminophen available when necessary. Might consider scheduling this if he is having quite a bit of pain. Patient may self catheter as needed. 05/10/17 Psych: Started Cymbalta 30mg PO daily to target depression, pain. 05/11/17 Psych: Plan to continue current care, discuss symptoms, treatment and safety concerns with . 05/12/17 Psych: Start Abilify 1mg PO daily in AM to target paranoia/delusions. 05/13/17 Psych: Continue current care for the time being and assess response/ tolerance to starting Abilify. Will likely increase Cymbalta to 30mg PO BID soon to target mood, pain. 05/13/17 19:18 Fall without LOC on 05/13/17, minor head injury with pain to left parietal region. Neurovascularly intact and VSS. Will have nsg staff repeat neuro checks tonight and again in am. Labs done on 05/12/17 were very stable. Hold ASA on . Head CT done earlier today was negative for acute findings. 05/14/17 17:44 Pt mood improved. Continue current care
[2017-05-14] MEDS: PRAVASTATIN 40 MG TABLET PO SCH (20:56)
[2017-05-14] MEDS: LATANOPROST 0.005% EYE DROPS 2.5ml LEFT EYE SCH (20:57)
[2017-05-15] MEDS: CARVEDILOL 6.25 MG TABLET PO SCH ×2 (08:33→17:00)
[2017-05-15] MEDS: ARIPiprazole 2 MG TABLET PO SCH (08:34)
[2017-05-15] MEDS: ASPIRIN 81 MG CHEWABLE TABLET PO SCH (08:36)
[2017-05-15] MEDS: DULOXETINE 30 MG CAPSULE PO SCH (08:36)
[2017-05-15] MEDS: FINASTERIDE 5 MG TABLET PO SCH (08:37)
[2017-05-15] MEDS: MULTI-VITAMIN PLAIN TABLET PO SCH (08:37)
[2017-05-15] MEDS: REFRESH CLASSIC Eye Drops 0.4ml RIGHT EYE SCH (08:37)
[2017-05-15] MEDS: FOLIC ACID 1 MG TABLET PO SCH (08:37)
[2017-05-15] MEDS: EYE LEFT EYE SCH (08:38)
[2017-05-15] MEDS: TAMSULOSIN 0.4 MG CAPSULE PO SCH (08:38)
[2017-05-15] MEDS: SODIUM CHLORIDE 5% LEFT EYE SCH (08:38)
--- NOTE | 2017-05-15 11:15 | Neuropsych Progress Note ---
[facility] Subjective Date: 05/15/17 - Sujective/Severity of Illness Medications: Acetaminophen (Tylenol) 650 mg PO Q5H PRN PRN Reason: Discomfort Al Hydroxide/Mg Hydroxide (Maalox Plus) 30 ml PO Q4H PRN PRN Reason: Indigestion Last Admin: 05/10/17 17:16 Dose: 30 ml Aripiprazole (Abilify) 1 mg PO DAILY [facility] Last Admin: 05/15/17 08:34 Dose: 1 mg Artificial Tears (Refresh Classic) 1 drop RIGHT EYE DAILY [facility] Last Admin: 05/15/17 08:37 Dose: 1 drop Aspirin (Asa) 81 mg PO DAILY [facility] Last Admin: 05/15/17 08:36 Dose: 81 mg Carvedilol (Coreg) 6.25 mg PO [facility] Last Admin: 05/15/17 08:33 Dose: 6.25 mg Duloxetine HCl (Cymbalta) 30 mg PO DAILY [facility] Last Admin: 05/15/17 08:36 Dose: 30 mg Finasteride (Proscar) 5 mg PO DAILY [facility] Last Admin: 05/15/17 08:37 Dose: 5 mg Folic Acid (Folate) 1 mg PO DAILY [facility] Last Admin: 05/15/17 08:37 Dose: 1 mg Haloperidol (Haldol) 0.5 mg PO Q6H PRN PRN Reason: Extreme agitation Haloperidol Lactate (Haldol) 0.5 mg IM Q6H PRN PRN Reason: Extreme agitation Latanoprost (Xalatan) 1 drops LEFT EYE HS [facility] Last Admin: 05/14/17 20:57 Dose: 1 drops Lorazepam (Ativan) 0.5 mg PO Q6H PRN PRN Reason: Extreme agitation Lorazepam (Ativan Inj) 2 mg IM O PRN PRN Reason: Seizure activity Lorazepam (Ativan Inj) 1 mg IM ONCE PRN PRN Reason: Seizure activity Multivitamins (Theragran) 1 tab PO DAILY [facility] Last Admin: 05/15/17 08:37 Dose: 1 tab Nitroglycerin (Nitrostat) 0.4 mg SL PRN PRN Oxazepam (Serax) 30 mg PO Q1HR PRN PRN Reason: See comments below Oxybutynin Chloride (Ditropan) 5 mg PO TID [facility] Last Admin: 05/15/17 08:37 Dose: 5 mg Pravastatin Sodium (Pravachol) 40 mg PO HS [facility] Last Admin: 05/14/17 20:56 Dose: 40 mg Sodium Polystyrene Sulfonate (Esau-128) 1 applic LEFT EYE DAILY [facility] Last Admin: 05/15/17 08:38 Dose: 1 applic Tamsulosin HCl (Flomax) 0.4 mg PO DAILY [facility] Last Admin: 05/15/17 08:38 Dose: 0.4 mg Thiamine HCl (Vitamin B-1) 100 mg PO DAILY [facility] Last Admin: 05/15/17 08:38 Dose: 100 mg Subjective: Pt seen and chart examined. Nursing reports pt is doing well. Sleeping well and has a good appetite. On face to face the pt states he remains depressed. he reports he worries about his future with his physical health issues and feels guilty about his having to take care of him. he denies S/I. Tolerating meds Start Time: 10:00 Stop Time: 10:15 Mental Status Exam Vitals: Last Vital Signs Temp 97.6 F 05/15/17 08:00 Pulse 56 L 05/15/17 08:00 Resp 16 05/15/17 08:00 BP 124/65 05/15/17 08:00 Pulse Ox 96 05/15/17 08:00 Height: 1.75 m Weight: 79.3 kg - Mental Status Exam Muscle Strength/Tone: Weak Dressing: Casual Grooming: Good Attitude: Cooperative, Guarded (in regards to paranoia, gun, etc. reported by ) Motor Activity: Retardation Eye Contact: Good Speech: Normal Volume: Normal Rhythm: Appropriate Rhythm Orientation: Oriented X4 Mood: Depressed Rate of Thoughts: Appropriate Rate Thought Organization: Organized Associations: Intact Abstract Reasoning: Intact, able to abstract Thought Content: Delusions, Ruminations, Hopelessness, Helplessness, Worthlessness, Paranoia, Somatic Concerns Perception/Psychotic: Perception Normal Language: Naming Intact Fund of Knowledge: Appropriate Memory: Grossly Intact Suicidal Ideation: Persistent Homicidal Ideation: Denies Insight: Impaired Judgement: Impaired Impulse Control: Fair - Laboratory Result Diagrams: 05/12/17 07:03 05/12/17 07:03 Assessment and Plan (1) Major depressive disorder, single episode, severe with psychotic features Current visit: Yes Status: Acute (2) Spinal stenosis Current visit: Yes Status: Acute (3) Hypertension Current visit: Yes Status: Acute (4) CAD (coronary artery disease) Current visit: Yes Status: Acute (5) CHF (congestive heart failure) Current visit: Yes Status: Acute (6) COPD (chronic obstructive pulmonary disease) Current visit: Yes Status: Acute (7) History of hypothyroidism Current visit: Yes Status: Acute (8) History of pancreatitis Current visit: Yes Status: Acute (9) Chronic kidney disease Current visit: Yes Status: Acute (10) Right retinal detachment Current visit: Yes Status: Acute (11) History of hepatitis Current visit: Yes Status: Acute (12) History of kidney stones Current visit: Yes Status: Acute (13) Alcohol use disorder Current visit: Yes Status: Acute Hospital Course Summary Disclaimer: The visit summary below is not to be considered part of the above Progress Note. Hospital Course: Assessment Delusions and paranoia associated with severe depression Alcohol use Spinal stenosis causing chronic low back and lower extremity pain Hypertension Coronary artery disease (CABG 5 in March [address] 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 We'll need to monitor patient closely for alcohol withdrawal. PRN Serax and Ativan orders entered. Start thiamine, folate and multivitamin. Suspect he will have increased pain given he will not be able to medicate with alcohol. Will make acetaminophen available when necessary. Might consider scheduling this if he is having quite a bit of pain. Patient may self catheter as needed. 05/10/17 Psych: Started Cymbalta 30mg PO daily to target depression, pain. 05/11/17 Psych: Plan to continue current care, discuss symptoms, treatment and safety concerns with . 05/12/17 Psych: Start Abilify 1mg PO daily in AM to target paranoia/delusions. 05/13/17 Psych: Continue current care for the time being and assess response/ tolerance to starting Abilify. Will likely increase Cymbalta to 30mg PO BID soon to target mood, pain. 05/13/17 19:18 Fall without LOC on 05/13/17, minor head injury with pain to left parietal region. Neurovascularly intact and VSS. Will have nsg staff repeat neuro checks tonight and again in am. Labs done on 05/12/17 were very stable. Hold ASA on . Head CT done earlier today was negative for acute findings. 05/14/17 17:44 Pt mood improved. Continue current care 05/15/17 11:14 Remains depressed but no S/I. Continue current care
[2017-05-15] MEDS: PRAVASTATIN 40 MG TABLET PO SCH (20:13)
[2017-05-15] MEDS: LATANOPROST 0.005% EYE DROPS 2.5ml LEFT EYE SCH (20:14)
[2017-05-16] MEDS: CARVEDILOL 6.25 MG TABLET PO SCH ×2 (08:31→17:17)
[2017-05-16] MEDS: ARIPiprazole 2 MG TABLET PO SCH (08:31)
[2017-05-16] MEDS: EYE LEFT EYE SCH (08:32)
[2017-05-16] MEDS: FINASTERIDE 5 MG TABLET PO SCH (08:32)
[2017-05-16] MEDS: MULTI-VITAMIN PLAIN TABLET PO SCH (08:32)
[2017-05-16] MEDS: FOLIC ACID 1 MG TABLET PO SCH (08:32)
[2017-05-16] MEDS: SODIUM CHLORIDE 5% LEFT EYE SCH (08:32)
[2017-05-16] MEDS: DULOXETINE 30 MG CAPSULE PO SCH ×2 (08:32→21:08)
[2017-05-16] MEDS: ASPIRIN 81 MG CHEWABLE TABLET PO SCH (08:32)
[2017-05-16] MEDS: REFRESH CLASSIC Eye Drops 0.4ml RIGHT EYE SCH (08:33)
[2017-05-16] MEDS: TAMSULOSIN 0.4 MG CAPSULE PO SCH (08:33)
--- NOTE | 2017-05-16 12:21 | Progress Note ---
- Date 05/16/17 Subjective: Kai was in the dayroom, visiting with his . He hasn't had any symptoms since his fall on 05/13/17. He denies headache or new paresthesias. His sciatic pain is "terrible". He denies SOA or chest pain. His appetite has been good. He' s been A&O x3. Staff has observed him strait catheterize. Objective Vital signs: Temperature 97.7 F 05/16/17 08:00 Pulse Rate 53 L 05/16/17 08:00 Respiratory Rate 16 05/16/17 08:00 Blood Pressure 135/62 05/16/17 08:00 Pulse Oximetry 98 05/16/17 08:00 Height/Weight/BMI: Height 1.75 m Weight 79.3 kg Body Mass Index 25.8 - Constitutional Present: no acute distress, well nourished, well developed - Routine HEENT Exam Eye: Absent: PERRL (right eye blindness and dilated pupil), conjunctival icterus , scleral injection ENT: Present: mucous membranes moist Comments: minimal contusion to left parietal scalp - Routine Respiratory Exam Present: CTA bilaterally - Routine Cardiovascular Exam Present: RRR, S1, S2 - Routine Abdominal Exam Present: soft, normoactive bowel sounds (hyperactive), non distended, non tender - Routine Extremities Exam Present: no edema, pulses intact - Routine Skin Exam Present: intact, dry, warm - Routine Neurological Exam Present: alert, oriented X3, moving all extremities, normal speech. Absent: motor deficit (equal b/l), facial asymmetry - Routine Psychiatric Exam Present: normal affect, cooperative Results - Labs CBC & Chem 7: 05/12/17 07:03 05/12/17 07:03 Assessment and Plan (1) Severe depression Current visit: Yes Status: Acute Assessment and Plan: Assessment Fall on 05/13/17, with minor head injury Delusions and paranoia associated with severe depression Alcohol use Spinal stenosis causing chronic low back and lower extremity pain Hypertension Coronary artery disease (CABG [address] in [address] 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 VSS, noted bradycardia in the 50s, asymptomatic (he does take Coreg). Psychiatric progress note reviewed. Resuscitation Status: Full Code - Physician Narrative Narrative: Date: 05/16/17 Time: 1219 Hospital Course Summary Disclaimer: The visit summary below is not to be considered part of the above Progress Note. Hospital Course: Assessment Delusions and paranoia associated with severe depression Alcohol use Spinal stenosis causing chronic low back and lower extremity pain Hypertension Coronary artery disease (CABG 5 in March [address] 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 We'll need to monitor patient closely for alcohol withdrawal. PRN Serax and Ativan orders entered. Start thiamine, folate and multivitamin. Suspect he will have increased pain given he will not be able to medicate with alcohol. Will make acetaminophen available when necessary. Might consider scheduling this if he is having quite a bit of pain. Patient may self catheter as needed. 05/10/17 Psych: Started Cymbalta 30mg PO daily to target depression, pain. 05/11/17 Psych: Plan to continue current care, discuss symptoms, treatment and safety concerns with . 05/12/17 Psych: Start Abilify 1mg PO daily in AM to target paranoia/delusions. 05/13/17 Psych: Continue current care for the time being and assess response/ tolerance to starting Abilify. Will likely increase Cymbalta to 30mg PO BID soon to target mood, pain. 05/13/17 19:18 Fall without LOC on 05/13/17, minor head injury with pain to left parietal region. Neurovascularly intact and VSS. Will have nsg staff repeat neuro checks tonight and again in am. Labs done on 05/12/17 were very stable. Hold ASA on . Head CT done earlier today was negative for acute findings. 05/14/17 17:44 Pt mood improved. Continue current care 05/15/17 11:14 Remains depressed but no S/I. Continue current care 05/16/17 Medically stable, no evidence to support concussion or neuro compromise following fall on 05/13. VSS, noted bradycardia in the 50s, asymptomatic (he does take Coreg).
--- NOTE | 2017-05-16 16:48 | Neuropsych Progress Note ---
[facility] Subjective Date: 05/16/17 - Sujective/Severity of Illness Medications: Acetaminophen (Tylenol) 650 mg PO Q5H PRN PRN Reason: Discomfort Al Hydroxide/Mg Hydroxide (Maalox Plus) 30 ml PO Q4H PRN PRN Reason: Indigestion Last Admin: 05/10/17 17:16 Dose: 30 ml Aripiprazole (Abilify) 1 mg PO DAILY [facility] Last Admin: 05/16/17 08:31 Dose: 1 mg Artificial Tears (Refresh Classic) 1 drop RIGHT EYE DAILY [facility] Last Admin: 05/16/17 08:33 Dose: 1 drop Aspirin (Asa) 81 mg PO DAILY [facility] Last Admin: 05/16/17 08:32 Dose: 81 mg Carvedilol (Coreg) 6.25 mg PO [facility] Last Admin: 05/16/17 08:31 Dose: 6.25 mg Duloxetine HCl (Cymbalta) 30 mg PO DAILY [facility] Last Admin: 05/16/17 08:32 Dose: 30 mg Finasteride (Proscar) 5 mg PO DAILY [facility] Last Admin: 05/16/17 08:32 Dose: 5 mg Folic Acid (Folate) 1 mg PO DAILY [facility] Last Admin: 05/16/17 08:32 Dose: 1 mg Haloperidol (Haldol) 0.5 mg PO Q6H PRN PRN Reason: Extreme agitation Haloperidol Lactate (Haldol) 0.5 mg IM Q6H PRN PRN Reason: Extreme agitation Latanoprost (Xalatan) 1 drops LEFT EYE HS [facility] Last Admin: 05/15/17 20:14 Dose: 1 drops Lorazepam (Ativan) 0.5 mg PO Q6H PRN PRN Reason: Extreme agitation Lorazepam (Ativan Inj) 2 mg IM O PRN PRN Reason: Seizure activity Lorazepam (Ativan Inj) 1 mg IM ONCE PRN PRN Reason: Seizure activity Multivitamins (Theragran) 1 tab PO DAILY [facility] Last Admin: 05/16/17 08:32 Dose: 1 tab Nitroglycerin (Nitrostat) 0.4 mg SL PRN PRN Oxazepam (Serax) 30 mg PO Q1HR PRN PRN Reason: See comments below Oxybutynin Chloride (Ditropan) 5 mg PO TID [facility] Last Admin: 05/16/17 15:24 Dose: 5 mg Pravastatin Sodium (Pravachol) 40 mg PO HS [facility] Last Admin: 05/15/17 20:13 Dose: 40 mg Sodium Polystyrene Sulfonate (Esau-128) 1 applic LEFT EYE DAILY [facility] Last Admin: 05/16/17 08:32 Dose: 1 applic Tamsulosin HCl (Flomax) 0.4 mg PO DAILY [facility] Last Admin: 05/16/17 08:33 Dose: 0.4 mg Thiamine HCl (Vitamin B-1) 100 mg PO DAILY [facility] Last Admin: 05/16/17 08:33 Dose: 100 mg Subjective: Patient seen and chart reviewed. Case discussed with treatment team. On interview, patient reports his depression is improving and he has some insight into that his worries about someone seizing his house are not legitimate. He is now able to name protective factors and agrees that it is best for him to move to AL facility after discharge. I had a family meeting with in regards to symptoms, treatment, progression and plan after discharge. She agrees he is improving. He will not have access to alcohol in AL facility. Patient denies any SI, HI or AVH. Patient denies any adverse side effects related to psychotropic medications. Nursing staff report patient has become quite anxious about his interactions with another patient (he is not able to reason that she has dementia and gets confused when trying to come into his room, etc.) but otherwise pleasant. He isolates at times when things don't go his way (for example, everyone else but him wanted to watch a [employer] movie). He has been adherent with medications. Patient slept 7 hours overnight. VSS. Patient is eating well. Psychotropic PRNs required in the past 24 hours: none. Start Time: 09:00 Stop Time: 09:40 Care: >50% of this visit spent in counseling/coordination care. Mental Status Exam Vitals: Last Vital Signs Temp 98.6 F 05/16/17 16:00 Pulse 57 L 05/16/17 16:00 Resp 16 05/16/17 16:00 BP 126/64 05/16/17 16:00 Pulse Ox 96 05/16/17 16:00 Height: 1.75 m Weight: 79.3 kg - Mental Status Exam Muscle Strength/Tone: Weak Dressing: Casual Grooming: Good Attitude: Cooperative Motor Activity: Retardation Eye Contact: Good Speech: Normal Volume: Normal Rhythm: Appropriate Rhythm Orientation: Oriented X4 Mood: Depressed, Other ("better") Affect: Anxious (improving) Rate of Thoughts: Appropriate Rate Thought Organization: Organized Associations: Intact Abstract Reasoning: Intact, able to abstract Thought Content: Ruminations, Paranoia (improving), Somatic Concerns Perception/Psychotic: Perception Normal Language: Naming Intact Fund of Knowledge: Appropriate Memory: Grossly Intact Suicidal Ideation: Denies Homicidal Ideation: Denies Insight: Limited Judgement: Limited Impulse Control: Fair - Laboratory Result Diagrams: 05/12/17 07:03 05/12/17 07:03 Assessment and Plan (1) Major depressive disorder, single episode, severe with psychotic features Current visit: Yes Status: Acute (2) Alcohol use disorder Current visit: Yes Status: Acute (3) Spinal stenosis Current visit: Yes Status: Acute (4) Hypertension Current visit: Yes Status: Acute (5) CAD (coronary artery disease) Current visit: Yes Status: Acute (6) CHF (congestive heart failure) Current visit: Yes Status: Acute (7) COPD (chronic obstructive pulmonary disease) Current visit: Yes Status: Acute (8) History of hypothyroidism Current visit: Yes Status: Acute (9) History of pancreatitis Current visit: Yes Status: Acute (10) Chronic kidney disease Current visit: Yes Status: Acute (11) Right retinal detachment Current visit: Yes Status: Acute (12) History of hepatitis Current visit: Yes Status: Acute (13) History of kidney stones Current visit: Yes Status: Acute Will increase Cymbalta to 30mg PO BID to target mood, anxiety. Recommend individual counseling and psychiatric care after discharge to [place], no access to EtOH. Continuing to work on safe discharge plan in conjunction with as patient remains high risk for suicide. Hospital Course Summary Disclaimer: The visit summary below is not to be considered part of the above Progress Note. Hospital Course: Assessment Delusions and paranoia associated with severe depression Alcohol use Spinal stenosis causing chronic low back and lower extremity pain Hypertension Coronary artery disease (CABG 5 in [address] 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 We'll need to monitor patient closely for alcohol withdrawal. PRN Serax and Ativan orders entered. Start thiamine, folate and multivitamin. Suspect he will have increased pain given he will not be able to medicate with alcohol. Will make acetaminophen available when necessary. Might consider scheduling this if he is having quite a bit of pain. Patient may self catheter as needed. 05/10/17 Psych: Started Cymbalta 30mg PO daily to target depression, pain. 05/11/17 Psych: Plan to continue current care, discuss symptoms, treatment and safety concerns with . 05/12/17 Psych: Start Abilify 1mg PO daily in AM to target paranoia/delusions. 05/13/17 Psych: Continue current care for the time being and assess response/ tolerance to starting Abilify. Will likely increase Cymbalta to 30mg PO BID soon to target mood, pain. 05/13/17 19:18 Fall without LOC on 05/13/17, minor head injury with pain to left parietal region. Neurovascularly intact and VSS. Will have nsg staff repeat neuro checks tonight and again in am. Labs done on 05/12/17 were very stable. Hold ASA on . Head CT done earlier today was negative for acute findings. 05/14/17 17:44 Pt mood improved. Continue current care 05/15/17 11:14 Remains depressed but no S/I. Continue current care 05/16/17 Medically stable, no evidence to support concussion or neuro compromise following fall on 05/13. VSS, noted bradycardia in the 50s, asymptomatic (he does take Coreg). 05/16/17 Psych: Will increase Cymbalta to 30mg PO BID to target mood, anxiety. Recommend individual counseling and psychiatric care after discharge to [place], no access to EtOH. Continuing to work on safe discharge plan in conjunction with as patient remains high risk for suicide.
[2017-05-16] MEDS: PRAVASTATIN 40 MG TABLET PO SCH (21:08)
[2017-05-16] MEDS: LATANOPROST 0.005% EYE DROPS 2.5ml LEFT EYE SCH (21:09)
[2017-05-17] MEDS: CARVEDILOL 6.25 MG TABLET PO SCH ×2 (08:28→17:09)
[2017-05-17] MEDS: FINASTERIDE 5 MG TABLET PO SCH (08:29)
[2017-05-17] MEDS: FOLIC ACID 1 MG TABLET PO SCH (08:29)
[2017-05-17] MEDS: ARIPiprazole 2 MG TABLET PO SCH (08:29)
[2017-05-17] MEDS: MULTI-VITAMIN PLAIN TABLET PO SCH (08:29)
[2017-05-17] MEDS: DULOXETINE 30 MG CAPSULE PO SCH ×2 (08:29→20:12)
[2017-05-17] MEDS: ASPIRIN 81 MG CHEWABLE TABLET PO SCH (08:29)
[2017-05-17] MEDS: REFRESH CLASSIC Eye Drops 0.4ml RIGHT EYE SCH (08:30)
[2017-05-17] MEDS: EYE LEFT EYE SCH (08:30)
[2017-05-17] MEDS: SODIUM CHLORIDE 5% LEFT EYE SCH (08:30)
[2017-05-17] MEDS: TAMSULOSIN 0.4 MG CAPSULE PO SCH (08:30)
[2017-05-17] MEDS: LATANOPROST 0.005% EYE DROPS 2.5ml LEFT EYE SCH (20:12)
[2017-05-17] MEDS: PRAVASTATIN 40 MG TABLET PO SCH (20:12)
--- NOTE | 2017-05-17 20:22 | Neuropsych Progress Note ---
[facility] Subjective Date: 05/18/17 - Sujective/Severity of Illness Medications: Acetaminophen (Tylenol) 650 mg PO Q5H PRN PRN Reason: Discomfort Al Hydroxide/Mg Hydroxide (Maalox Plus) 30 ml PO Q4H PRN PRN Reason: Indigestion Last Admin: 05/10/17 17:16 Dose: 30 ml Aripiprazole (Abilify) 1 mg PO DAILY [facility] Last Admin: 05/17/17 08:29 Dose: 1 mg Artificial Tears (Refresh Classic) 1 drop RIGHT EYE DAILY [facility] Last Admin: 05/17/17 08:30 Dose: 1 drop Aspirin (Asa) 81 mg PO DAILY [facility] Last Admin: 05/17/17 08:29 Dose: 81 mg Carvedilol (Coreg) 6.25 mg PO [facility] Last Admin: 05/17/17 17:09 Dose: 6.25 mg Duloxetine HCl (Cymbalta) 30 mg PO BID [facility] Last Admin: 05/17/17 20:12 Dose: 30 mg Finasteride (Proscar) 5 mg PO DAILY [facility] Last Admin: 05/17/17 08:29 Dose: 5 mg Folic Acid (Folate) 1 mg PO DAILY [facility] Last Admin: 05/17/17 08:29 Dose: 1 mg Haloperidol (Haldol) 0.5 mg PO Q6H PRN PRN Reason: Extreme agitation Haloperidol Lactate (Haldol) 0.5 mg IM Q6H PRN PRN Reason: Extreme agitation Latanoprost (Xalatan) 1 drops LEFT EYE HS [facility] Last Admin: 05/17/17 20:12 Dose: 1 drops Lorazepam (Ativan) 0.5 mg PO Q6H PRN PRN Reason: Extreme agitation Lorazepam (Ativan Inj) 2 mg IM O PRN PRN Reason: Seizure activity Lorazepam (Ativan Inj) 1 mg IM ONCE PRN PRN Reason: Seizure activity Multivitamins (Theragran) 1 tab PO DAILY [facility] Last Admin: 05/17/17 08:29 Dose: 1 tab Nitroglycerin (Nitrostat) 0.4 mg SL PRN PRN Oxazepam (Serax) 30 mg PO Q1HR PRN PRN Reason: See comments below Oxybutynin Chloride (Ditropan) 5 mg PO TID [facility] Last Admin: 05/17/17 20:12 Dose: 5 mg Pravastatin Sodium (Pravachol) 40 mg PO HS [facility] Last Admin: 05/17/17 20:12 Dose: 40 mg Sodium Polystyrene Sulfonate (Esau-128) 1 applic LEFT EYE DAILY [facility] Last Admin: 05/17/17 08:30 Dose: 1 applic Tamsulosin HCl (Flomax) 0.4 mg PO DAILY [facility] Last Admin: 05/17/17 08:30 Dose: 0.4 mg Thiamine HCl (Vitamin B-1) 100 mg PO DAILY [facility] Last Admin: 05/17/17 08:30 Dose: 100 mg Subjective: Patient seen and chart reviewed. Case discussed with treatment team. On interview, patient reports his depression is improving and he has some insight into that his worries about someone seizing his house are not legitimate. He is now able to name protective factors and agrees that it is best for him to move to AL facility after discharge. He reports enjoying watching bowl games with other patients on the unit the night prior. He has been isolating less and participating more. Patient denies any SI, HI or AVH. Patient denies any adverse side effects related to psychotropic medications. Nursing staff report patient can be mildly irritable if not in charge of the remote control in the dayroom but otherwise pleasant and cooperative. He has been adherent with medications. Patient slept well overnight. VSS. Patient is eating well. Psychotropic PRNs required in the past 24 hours: none. Start Time: 09:00 Stop Time: 09:20 Mental Status Exam Vitals: Last Vital Signs Temp 98.4 F 05/17/17 15:59 Pulse 67 05/17/17 15:59 Resp 20 05/17/17 15:59 BP 143/66 H 05/17/17 15:59 Pulse Ox 96 05/17/17 15:59 Height: 1.75 m Weight: 76.5 kg - Mental Status Exam Muscle Strength/Tone: Weak Dressing: Casual Grooming: Good Attitude: Cooperative Motor Activity: Normal Eye Contact: Good Speech: Normal Volume: Normal Rhythm: Appropriate Rhythm Orientation: Oriented X4 Mood: Other (affect less anxious, less irritable) Rate of Thoughts: Appropriate Rate Thought Organization: Organized Associations: Intact Abstract Reasoning: Intact, able to abstract Thought Content: Ruminations (decreasing), Paranoia (improving), Somatic Concerns Perception/Psychotic: Perception Normal Language: Naming Intact Fund of Knowledge: Appropriate Memory: Grossly Intact Suicidal Ideation: Denies Homicidal Ideation: Denies Insight: Limited Judgement: Limited Impulse Control: Fair - Laboratory Result Diagrams: 05/12/17 07:03 05/12/17 07:03 Assessment and Plan (1) Major depressive disorder, single episode, severe with psychotic features Current visit: Yes Status: Acute psychosis improving - mild in intensity at this point, insight improving (2) Alcohol use disorder Current visit: Yes Status: Acute (3) Spinal stenosis Current visit: Yes Status: Acute (4) Hypertension Current visit: Yes Status: Acute (5) CAD (coronary artery disease) Current visit: Yes Status: Acute (6) CHF (congestive heart failure) Current visit: Yes Status: Acute (7) COPD (chronic obstructive pulmonary disease) Current visit: Yes Status: Acute (8) History of hypothyroidism Current visit: Yes Status: Acute (9) History of pancreatitis Current visit: Yes Status: Acute (10) Chronic kidney disease Current visit: Yes Status: Acute (11) Right retinal detachment Current visit: Yes Status: Acute (12) History of hepatitis Current visit: Yes Status: Acute (13) History of kidney stones Current visit: Yes Status: Acute Hospital Course Summary Disclaimer: The visit summary below is not to be considered part of the above Progress Note. Hospital Course: Assessment Delusions and paranoia associated with severe depression Alcohol use Spinal stenosis causing chronic low back and lower extremity pain Hypertension Coronary artery disease (CABG 5 in [address] 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 We'll need to monitor patient closely for alcohol withdrawal. PRN Serax and Ativan orders entered. Start thiamine, folate and multivitamin. Suspect he will have increased pain given he will not be able to medicate with alcohol. Will make acetaminophen available when necessary. Might consider scheduling this if he is having quite a bit of pain. Patient may self catheter as needed. 05/10/17 Psych: Started Cymbalta 30mg PO daily to target depression, pain. 05/11/17 Psych: Plan to continue current care, discuss symptoms, treatment and safety concerns with . 05/12/17 Psych: Start Abilify 1mg PO daily in AM to target paranoia/delusions. 05/13/17 Psych: Continue current care for the time being and assess response/ tolerance to starting Abilify. Will likely increase Cymbalta to 30mg PO BID soon to target mood, pain. 05/13/17 19:18 Fall without LOC on 05/13/17, minor head injury with pain to left parietal region. Neurovascularly intact and VSS. Will have nsg staff repeat neuro checks tonight and again in am. Labs done on 05/12/17 were very stable. Hold ASA on . Head CT done earlier today was negative for acute findings. 05/14/17 17:44 Pt mood improved. Continue current care 05/15/17 11:14 Remains depressed but no S/I. Continue current care 05/16/17 Medically stable, no evidence to support concussion or neuro compromise following fall on 05/13. VSS, noted bradycardia in the 50s, asymptomatic (he does take Coreg). 05/16/17 Psych: Will increase Cymbalta to 30mg PO BID to target mood, anxiety. Recommend individual counseling and psychiatric care after discharge to [place], no access to EtOH. Continuing to work on safe discharge plan in conjunction with as patient remains high risk for suicide. 05/17/17 Psych: Continue current care -attempting to find facility and make safe discharge plans as above.
[2017-05-18] MEDS: CARVEDILOL 6.25 MG TABLET PO SCH ×2 (08:15→16:59)
[2017-05-18] MEDS: ARIPiprazole 2 MG TABLET PO SCH (08:16)
[2017-05-18] MEDS: SODIUM CHLORIDE 5% LEFT EYE SCH (08:17)
[2017-05-18] MEDS: DULOXETINE 30 MG CAPSULE PO SCH ×2 (08:17→20:33)
[2017-05-18] MEDS: FOLIC ACID 1 MG TABLET PO SCH (08:17)
[2017-05-18] MEDS: MULTI-VITAMIN PLAIN TABLET PO SCH (08:17)
[2017-05-18] MEDS: EYE LEFT EYE SCH (08:17)
[2017-05-18] MEDS: FINASTERIDE 5 MG TABLET PO SCH (08:17)
[2017-05-18] MEDS: ASPIRIN 81 MG CHEWABLE TABLET PO SCH (08:17)
[2017-05-18] MEDS: REFRESH CLASSIC Eye Drops 0.4ml RIGHT EYE SCH (08:18)
[2017-05-18] MEDS: TAMSULOSIN 0.4 MG CAPSULE PO SCH (08:18)
--- NOTE | 2017-05-18 17:54 | Neuropsych Progress Note ---
[facility] Subjective Date: 05/18/17 - Sujective/Severity of Illness Medications: Acetaminophen (Tylenol) 650 mg PO Q5H PRN PRN Reason: Discomfort Al Hydroxide/Mg Hydroxide (Maalox Plus) 30 ml PO Q4H PRN PRN Reason: Indigestion Last Admin: 05/10/17 17:16 Dose: 30 ml Aripiprazole (Abilify) 1 mg PO DAILY [facility] Last Admin: 05/18/17 08:16 Dose: 1 mg Artificial Tears (Refresh Classic) 1 drop RIGHT EYE DAILY [facility] Last Admin: 05/18/17 08:18 Dose: 1 drop Aspirin (Asa) 81 mg PO DAILY [facility] Last Admin: 05/18/17 08:17 Dose: 81 mg Carvedilol (Coreg) 6.25 mg PO [facility] Last Admin: 05/18/17 16:59 Dose: 6.25 mg Duloxetine HCl (Cymbalta) 30 mg PO BID [facility] Last Admin: 05/18/17 08:17 Dose: 30 mg Finasteride (Proscar) 5 mg PO DAILY [facility] Last Admin: 05/18/17 08:17 Dose: 5 mg Folic Acid (Folate) 1 mg PO DAILY [facility] Last Admin: 05/18/17 08:17 Dose: 1 mg Haloperidol (Haldol) 0.5 mg PO Q6H PRN PRN Reason: Extreme agitation Haloperidol Lactate (Haldol) 0.5 mg IM Q6H PRN PRN Reason: Extreme agitation Latanoprost (Xalatan) 1 drops LEFT EYE HS [facility] Last Admin: 05/17/17 20:12 Dose: 1 drops Lorazepam (Ativan) 0.5 mg PO Q6H PRN PRN Reason: Extreme agitation Lorazepam (Ativan Inj) 2 mg IM O PRN PRN Reason: Seizure activity Lorazepam (Ativan Inj) 1 mg IM ONCE PRN PRN Reason: Seizure activity Multivitamins (Theragran) 1 tab PO DAILY [facility] Last Admin: 05/18/17 08:17 Dose: 1 tab Nitroglycerin (Nitrostat) 0.4 mg SL PRN PRN Oxazepam (Serax) 30 mg PO Q1HR PRN PRN Reason: See comments below Oxybutynin Chloride (Ditropan) 5 mg PO TID [facility] Last Admin: 05/18/17 14:24 Dose: 5 mg Pravastatin Sodium (Pravachol) 40 mg PO HS [facility] Last Admin: 05/17/17 20:12 Dose: 40 mg Sodium Polystyrene Sulfonate (Esau-128) 1 applic LEFT EYE DAILY [facility] Last Admin: 05/18/17 08:17 Dose: 1 applic Tamsulosin HCl (Flomax) 0.4 mg PO DAILY [facility] Last Admin: 05/18/17 08:18 Dose: 0.4 mg Thiamine HCl (Vitamin B-1) 100 mg PO DAILY [facility] Last Admin: 05/18/17 08:18 Dose: 100 mg Subjective: Patient seen and chart reviewed. Case discussed with treatment team. On interview, patient reports his depression is improving and he has some insight into that his worries about someone seizing his house are not legitimate. He is now able to name protective factors and agrees that it is best for him to move to AL facility after discharge. is again present on the unit. Patient was denied by one AL facility and is being assessed by another. He has been isolating less and participating more. Patient denies any SI, HI or AVH. Patient denies any adverse side effects related to psychotropic medications. Nursing staff report patient can be mildly irritable if not in charge of the remote control in the dayroom but otherwise pleasant and cooperative. He has been adherent with medications. Patient slept well overnight. VSS. Patient is eating well. Psychotropic PRNs required in the past 24 hours: none. Start Time: 11:00 Stop Time: 11:20 Mental Status Exam Vitals: Last Vital Signs Temp 98.6 F 05/18/17 16:00 Pulse 52 L 05/18/17 16:00 Resp 16 05/18/17 16:00 BP 130/64 05/18/17 16:00 Pulse Ox 97 05/18/17 16:00 Height: 1.75 m Weight: 76.5 kg - Mental Status Exam Muscle Strength/Tone: Weak Dressing: Casual Grooming: Good Attitude: Cooperative Motor Activity: Normal Eye Contact: Good Speech: Normal Volume: Normal Rhythm: Appropriate Rhythm Orientation: Oriented X4 Mood: Other (affect less anxious, less irritable) Affect: Relaxed Rate of Thoughts: Appropriate Rate Thought Organization: Organized Associations: Intact Abstract Reasoning: Intact, able to abstract Thought Content: Paranoia (improving), Somatic Concerns (decreased) Perception/Psychotic: Perception Normal Language: Naming Intact Fund of Knowledge: Appropriate Memory: Grossly Intact Suicidal Ideation: Denies Homicidal Ideation: Denies Insight: Limited Judgement: Limited Impulse Control: Fair - Laboratory Result Diagrams: 05/12/17 07:03 05/12/17 07:03 Assessment and Plan (1) Major depressive disorder, single episode, severe with psychotic features Current visit: Yes Status: Acute (2) Alcohol use disorder Current visit: Yes Status: Acute (3) Spinal stenosis Current visit: Yes Status: Acute (4) Hypertension Current visit: Yes Status: Acute (5) CAD (coronary artery disease) Current visit: Yes Status: Acute (6) CHF (congestive heart failure) Current visit: Yes Status: Acute (7) COPD (chronic obstructive pulmonary disease) Current visit: Yes Status: Acute (8) History of hypothyroidism Current visit: Yes Status: Acute (9) History of pancreatitis Current visit: Yes Status: Acute (10) Chronic kidney disease Current visit: Yes Status: Acute (11) Right retinal detachment Current visit: Yes Status: Acute (12) History of hepatitis Current visit: Yes Status: Acute (13) History of kidney stones Current visit: Yes Status: Acute Hospital Course Summary Disclaimer: The visit summary below is not to be considered part of the above Progress Note. Hospital Course: Assessment Delusions and paranoia associated with severe depression Alcohol use Spinal stenosis causing chronic low back and lower extremity pain Hypertension Coronary artery disease (CABG 5 in [address] 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 We'll need to monitor patient closely for alcohol withdrawal. PRN Serax and Ativan orders entered. Start thiamine, folate and multivitamin. Suspect he will have increased pain given he will not be able to medicate with alcohol. Will make acetaminophen available when necessary. Might consider scheduling this if he is having quite a bit of pain. Patient may self catheter as needed. 05/10/17 Psych: Started Cymbalta 30mg PO daily to target depression, pain. 05/11/17 Psych: Plan to continue current care, discuss symptoms, treatment and safety concerns with . 05/12/17 Psych: Start Abilify 1mg PO daily in AM to target paranoia/delusions. 05/13/17 Psych: Continue current care for the time being and assess response/ tolerance to starting Abilify. Will likely increase Cymbalta to 30mg PO BID soon to target mood, pain. 05/13/17 19:18 Fall without LOC on 05/13/17, minor head injury with pain to left parietal region. Neurovascularly intact and VSS. Will have nsg staff repeat neuro checks tonight and again in am. Labs done on 05/12/17 were very stable. Hold ASA on . Head CT done earlier today was negative for acute findings. 05/14/17 17:44 Pt mood improved. Continue current care 05/15/17 11:14 Remains depressed but no S/I. Continue current care 05/16/17 Medically stable, no evidence to support concussion or neuro compromise following fall on 05/13. VSS, noted bradycardia in the 50s, asymptomatic (he does take Coreg). 05/16/17 Psych: Will increase Cymbalta to 30mg PO BID to target mood, anxiety. Recommend individual counseling and psychiatric care after discharge to [place], no access to EtOH. Continuing to work on safe discharge plan in conjunction with as patient remains high risk for suicide. 05/17/17 Psych: Continue current care -attempting to find facility and make safe discharge plans as above. 05/18/17 Psych: Continue current care. For safety of patient, I believe patient will need to be discharged directly to AL rather than returning home as his is not able to provide 24/7 supervision. Another AL assessing today. Continue current care otherwise; patient is benefitting from continued socialization and therapies on unit.
[2017-05-18] MEDS: PRAVASTATIN 40 MG TABLET PO SCH (20:33)
[2017-05-18] MEDS: LATANOPROST 0.005% EYE DROPS 2.5ml LEFT EYE SCH (20:33)
[2017-05-19] MEDS: FOLIC ACID 1 MG TABLET PO SCH (08:06)
[2017-05-19] MEDS: DULOXETINE 30 MG CAPSULE PO SCH ×2 (08:07→20:16)
[2017-05-19] MEDS: FINASTERIDE 5 MG TABLET PO SCH (08:07)
[2017-05-19] MEDS: MULTI-VITAMIN PLAIN TABLET PO SCH (08:07)
[2017-05-19] MEDS: ARIPiprazole 2 MG TABLET PO SCH (08:07)
[2017-05-19] MEDS: TAMSULOSIN 0.4 MG CAPSULE PO SCH (08:07)
[2017-05-19] MEDS: ASPIRIN 81 MG CHEWABLE TABLET PO SCH (08:08)
[2017-05-19] MEDS: CARVEDILOL 6.25 MG TABLET PO SCH ×2 (08:08→17:10)
[2017-05-19] MEDS: REFRESH CLASSIC Eye Drops 0.4ml RIGHT EYE SCH (08:10)
[2017-05-19] MEDS: SODIUM CHLORIDE 5% LEFT EYE SCH (08:10)
[2017-05-19] MEDS: EYE LEFT EYE SCH (08:10)
--- NOTE | 2017-05-19 11:06 | Neuropsych Progress Note ---
[facility] Subjective Date: 05/20/17 - Sujective/Severity of Illness Medications: Acetaminophen (Tylenol) 650 mg PO Q5H PRN PRN Reason: Discomfort Al Hydroxide/Mg Hydroxide (Maalox Plus) 30 ml PO Q4H PRN PRN Reason: Indigestion Last Admin: 05/10/17 17:16 Dose: 30 ml Aripiprazole (Abilify) 1 mg PO DAILY [facility] Last Admin: 05/19/17 08:07 Dose: 1 mg Artificial Tears (Refresh Classic) 1 drop RIGHT EYE DAILY [facility] Last Admin: 05/19/17 08:10 Dose: 1 drop Aspirin (Asa) 81 mg PO DAILY [facility] Last Admin: 05/19/17 08:08 Dose: 81 mg Carvedilol (Coreg) 6.25 mg PO [facility] Last Admin: 05/19/17 08:08 Dose: 6.25 mg Duloxetine HCl (Cymbalta) 30 mg PO BID [facility] Last Admin: 05/19/17 08:07 Dose: 30 mg Finasteride (Proscar) 5 mg PO DAILY [facility] Last Admin: 05/19/17 08:07 Dose: 5 mg Folic Acid (Folate) 1 mg PO DAILY [facility] Last Admin: 05/19/17 08:06 Dose: 1 mg Haloperidol (Haldol) 0.5 mg PO Q6H PRN PRN Reason: Extreme agitation Haloperidol Lactate (Haldol) 0.5 mg IM Q6H PRN PRN Reason: Extreme agitation Latanoprost (Xalatan) 1 drops LEFT EYE HS [facility] Last Admin: 05/18/17 20:33 Dose: 1 drops Lorazepam (Ativan) 0.5 mg PO Q6H PRN PRN Reason: Extreme agitation Lorazepam (Ativan Inj) 2 mg IM O PRN PRN Reason: Seizure activity Lorazepam (Ativan Inj) 1 mg IM ONCE PRN PRN Reason: Seizure activity Multivitamins (Theragran) 1 tab PO DAILY [facility] Last Admin: 05/19/17 08:07 Dose: 1 tab Nitroglycerin (Nitrostat) 0.4 mg SL PRN PRN Oxazepam (Serax) 30 mg PO Q1HR PRN PRN Reason: See comments below Oxybutynin Chloride (Ditropan) 5 mg PO TID [facility] Last Admin: 05/19/17 08:07 Dose: 5 mg Pravastatin Sodium (Pravachol) 40 mg PO HS [facility] Last Admin: 05/18/17 20:33 Dose: 40 mg Sodium Polystyrene Sulfonate (Esau-128) 1 applic LEFT EYE DAILY [facility] Last Admin: 05/19/17 08:10 Dose: 1 applic Tamsulosin HCl (Flomax) 0.4 mg PO DAILY [facility] Last Admin: 05/19/17 08:07 Dose: 0.4 mg Thiamine HCl (Vitamin B-1) 100 mg PO DAILY [facility] Last Admin: 05/19/17 08:07 Dose: 100 mg Subjective: Patient seen and chart reviewed. Case discussed with treatment team. On interview, patient reports his depression is improving and he has some insight into that his worries about someone seizing his house are not legitimate. He is now able to name protective factors and agrees that it is best for him to move to AL facility after discharge. [facility] assessing. He has been isolating less and participating more. Patient denies any SI, HI or AVH. Patient denies any adverse side effects related to psychotropic medications. Nursing staff report lucinda's irritability is decreasing. He has been adherent with medications. Patient slept well overnight. VSS. Patient is eating well. Psychotropic PRNs required in the past 24 hours: none. Start Time: 16:00 Stop Time: 16:20 Mental Status Exam Vitals: Last Vital Signs Temp 97 F 05/19/17 08:00 Pulse 55 L 05/19/17 08:00 Resp 16 05/19/17 08:00 BP 123/61 05/19/17 08:00 Pulse Ox 95 05/19/17 08:00 Height: 1.75 m Weight: 76.5 kg - Mental Status Exam Muscle Strength/Tone: Weak Dressing: Casual Grooming: Good Attitude: Cooperative Motor Activity: Normal Eye Contact: Good Speech: Normal Volume: Normal Rhythm: Appropriate Rhythm Orientation: Oriented X4 Mood: Other (affect less anxious, less irritable) Rate of Thoughts: Appropriate Rate Thought Organization: Organized Associations: Intact Abstract Reasoning: Intact, able to abstract Thought Content: Paranoia (improving), Somatic Concerns (decreased) Perception/Psychotic: Perception Normal Language: Naming Intact Fund of Knowledge: Appropriate Memory: Grossly Intact Suicidal Ideation: Denies Homicidal Ideation: Denies Insight: Limited Judgement: Limited Impulse Control: Fair - Laboratory Result Diagrams: 05/12/17 07:03 05/12/17 07:03 Assessment and Plan (1) Major depressive disorder, single episode, severe with psychotic features Current visit: Yes Status: Acute (2) Alcohol use disorder Current visit: Yes Status: Acute (3) Spinal stenosis Current visit: Yes Status: Acute (4) Hypertension Current visit: Yes Status: Acute (5) CAD (coronary artery disease) Current visit: Yes Status: Acute (6) CHF (congestive heart failure) Current visit: Yes Status: Acute (7) COPD (chronic obstructive pulmonary disease) Current visit: Yes Status: Acute (8) History of hypothyroidism Current visit: Yes Status: Acute (9) History of pancreatitis Current visit: Yes Status: Acute (10) Chronic kidney disease Current visit: Yes Status: Acute (11) Right retinal detachment Current visit: Yes Status: Acute (12) History of hepatitis Current visit: Yes Status: Acute (13) History of kidney stones Current visit: Yes Status: Acute Continue current care - will discuss Coreg dosing with hospitalist as I am concerned bradycardia may lead to more fatigue and less motivation for patient to participate in activities, etc. Hospital Course Summary Disclaimer: The visit summary below is not to be considered part of the above Progress Note. Hospital Course: Assessment Delusions and paranoia associated with severe depression Alcohol use Spinal stenosis causing chronic low back and lower extremity pain Hypertension Coronary artery disease (CABG 5 in [address] 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 We'll need to monitor patient closely for alcohol withdrawal. PRN Serax and Ativan orders entered. Start thiamine, folate and multivitamin. Suspect he will have increased pain given he will not be able to medicate with alcohol. Will make acetaminophen available when necessary. Might consider scheduling this if he is having quite a bit of pain. Patient may self catheter as needed. 05/10/17 Psych: Started Cymbalta 30mg PO daily to target depression, pain. 05/11/17 Psych: Plan to continue current care, discuss symptoms, treatment and safety concerns with . 05/12/17 Psych: Start Abilify 1mg PO daily in AM to target paranoia/delusions. 05/13/17 Psych: Continue current care for the time being and assess response/ tolerance to starting Abilify. Will likely increase Cymbalta to 30mg PO BID soon to target mood, pain. 05/13/17 19:18 Fall without LOC on 05/13/17, minor head injury with pain to left parietal region. Neurovascularly intact and VSS. Will have nsg staff repeat neuro checks tonight and again in am. Labs done on 05/12/17 were very stable. Hold ASA on . Head CT done earlier today was negative for acute findings. 05/14/17 17:44 Pt mood improved. Continue current care 05/15/17 11:14 Remains depressed but no S/I. Continue current care 05/16/17 Medically stable, no evidence to support concussion or neuro compromise following fall on 05/13. VSS, noted bradycardia in the 50s, asymptomatic (he does take Coreg). 05/16/17 Psych: Will increase Cymbalta to 30mg PO BID to target mood, anxiety. Recommend individual counseling and psychiatric care after discharge to AL, no access to EtOH. Continuing to work on safe discharge plan in conjunction with as patient remains high risk for suicide. 05/17/17 Psych: Continue current care -attempting to find facility and make safe discharge plans as above. 05/18/17 Psych: Continue current care. For safety of patient, I believe patient will need to be discharged directly to AL rather than returning home as his is not able to provide 24/7 supervision. Another AL assessing today. Continue current care otherwise; patient is benefitting from continued socialization and therapies on unit. 05/19/17 Psych: Continue current care - will discuss Coreg dosing with hospitalist as I am concerned bradycardia may lead to more fatigue and less motivation for patient to participate in activities, etc.
[2017-05-19] MEDS: LATANOPROST 0.005% EYE DROPS 2.5ml LEFT EYE SCH (20:16)
[2017-05-19] MEDS: PRAVASTATIN 40 MG TABLET PO SCH (20:16)
--- NOTE | 2017-05-20 08:31 | Progress Note ---
- Date 05/20/17 Subjective: Kai was up in bed, trying to button his shirt. He was having difficulty d/t arthritis in his hands and tremors. He stated that he rested well last night. He denies having headaches. He denies any cardiac/respiratory c/o. He notes chronic back pain. 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 Objective Vital signs: Temperature 97.2 F 05/19/17 19:54 Pulse Rate 55 L 05/19/17 19:54 Respiratory Rate 16 05/19/17 19:54 Blood Pressure 114/53 05/19/17 19:54 Pulse Oximetry 95 05/19/17 19:54 Height/Weight/BMI: Height 1.75 m Weight 76.5 kg Body Mass Index 25.8 - Constitutional Present: no acute distress, well nourished, well developed - Routine HEENT Exam Head: Present: normocephalic Eye: Absent: PERRL (right eye blindness/pupil dilated), scleral injection ENT: Present: oropharynx clear - Routine Respiratory Exam Present: CTA bilaterally - Routine Cardiovascular Exam Present: RRR, S1, S2 - Routine Abdominal Exam Present: soft, normoactive bowel sounds, non tender - Routine Extremities Exam Present: no edema, pulses intact - Routine Musculoskeletal Exam Musculoskeletal: Present: other (arthritic changes noted to both hands) - Routine Neurological Exam Present: alert, oriented X3. Absent: facial asymmetry - Routine Psychiatric Exam Present: normal affect, normal thought process, cooperative Results - Labs CBC & Chem 7: 05/12/17 07:03 05/12/17 07:03 Assessment and Plan (1) Severe depression Current visit: Yes Status: Acute Assessment and Plan: Assessment Fall on 05/13/17, with minor head injury Delusions and paranoia associated with severe depression Alcohol use Spinal stenosis causing chronic low back and lower extremity pain Hypertension Coronary artery disease (CABG [address] in [address] 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 No bowel movement charted since 05/17/17 - start bowel regimen. Psychiatric progress note reviewed. DC planning in process. - Physician Narrative Narrative: Date: 05/20/17 Time: 0827 Hospital Course Summary Disclaimer: The visit summary below is not to be considered part of the above Progress Note. Hospital Course: Assessment Delusions and paranoia associated with severe depression Alcohol use Spinal stenosis causing chronic low back and lower extremity pain Hypertension Coronary artery disease (CABG 5 in March [address] 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 We'll need to monitor patient closely for alcohol withdrawal. PRN Serax and Ativan orders entered. Start thiamine, folate and multivitamin. Suspect he will have increased pain given he will not be able to medicate with alcohol. Will make acetaminophen available when necessary. Might consider scheduling this if he is having quite a bit of pain. Patient may self catheter as needed. 05/10/17 Psych: Started Cymbalta 30mg PO daily to target depression, pain. 05/11/17 Psych: Plan to continue current care, discuss symptoms, treatment and safety concerns with . 05/12/17 Psych: Start Abilify 1mg PO daily in AM to target paranoia/delusions. 05/13/17 Psych: Continue current care for the time being and assess response/ tolerance to starting Abilify. Will likely increase Cymbalta to 30mg PO BID soon to target mood, pain. 05/13/17 19:18 Fall without LOC on 05/13/17, minor head injury with pain to left parietal region. Neurovascularly intact and VSS. Will have nsg staff repeat neuro checks tonight and again in am. Labs done on 05/12/17 were very stable. Hold ASA on . Head CT done earlier today was negative for acute findings. 05/14/17 17:44 Pt mood improved. Continue current care 05/15/17 11:14 Remains depressed but no S/I. Continue current care 05/16/17 Medically stable, no evidence to support concussion or neuro compromise following fall on 05/13. VSS, noted bradycardia in the 50s, asymptomatic (he does take Coreg). 05/16/17 Psych: Will increase Cymbalta to 30mg PO BID to target mood, anxiety. Recommend individual counseling and psychiatric care after discharge to AL, no access to EtOH. Continuing to work on safe discharge plan in conjunction with as patient remains high risk for suicide. 05/17/17 Psych: Continue current care -attempting to find facility and make safe discharge plans as above. 05/18/17 Psych: Continue current care. For safety of patient, I believe patient will need to be discharged directly to AL rather than returning home as his is not able to provide 20/12 supervision. Another AL assessing today. Continue current care otherwise; patient is benefitting from continued socialization and therapies on unit. 05/20/17 No bowel movement charted since 05/17/17 - start bowel regimen.
[2017-05-20] MEDS: SODIUM CHLORIDE 5% LEFT EYE SCH (08:56)
[2017-05-20] MEDS: EYE LEFT EYE SCH (08:56)
[2017-05-20] MEDS: ARIPiprazole 2 MG TABLET PO SCH (08:56)
[2017-05-20] MEDS: TAMSULOSIN 0.4 MG CAPSULE PO SCH (08:56)
[2017-05-20] MEDS: CARVEDILOL 6.25 MG TABLET PO SCH ×2 (08:57→17:04)
[2017-05-20] MEDS: FINASTERIDE 5 MG TABLET PO SCH (08:57)
[2017-05-20] MEDS: FOLIC ACID 1 MG TABLET PO SCH (08:57)
[2017-05-20] MEDS: ASPIRIN 81 MG CHEWABLE TABLET PO SCH (08:57)
[2017-05-20] MEDS: MULTI-VITAMIN PLAIN TABLET PO SCH (08:57)
[2017-05-20] MEDS: DULOXETINE 30 MG CAPSULE PO SCH ×2 (08:57→20:03)
[2017-05-20] MEDS: REFRESH CLASSIC Eye Drops 0.4ml RIGHT EYE SCH (08:58)
[2017-05-20] MEDS: POLYETHYL GLYCOL 3350 17gm PACKET PO SCH (08:58)
[2017-05-20] MEDS: SENNA + DOCUSATE TABLET PO SCH ×3 (10:52→20:10)
--- NOTE | 2017-05-20 14:59 | Neuropsych Progress Note ---
[facility] Subjective Date: 05/20/17 - Sujective/Severity of Illness Medications: Acetaminophen (Tylenol) 650 mg PO Q5H PRN PRN Reason: Discomfort Al Hydroxide/Mg Hydroxide (Maalox Plus) 30 ml PO Q4H PRN PRN Reason: Indigestion Last Admin: 05/10/17 17:16 Dose: 30 ml Aripiprazole (Abilify) 1 mg PO DAILY [facility] Last Admin: 05/20/17 08:56 Dose: 1 mg Artificial Tears (Refresh Classic) 1 drop RIGHT EYE DAILY [facility] Last Admin: 05/20/17 08:58 Dose: 1 drop Aspirin (Asa) 81 mg PO DAILY [facility] Last Admin: 05/20/17 08:57 Dose: 81 mg Carvedilol (Coreg) 6.25 mg PO [facility] Last Admin: 05/20/17 08:57 Dose: 6.25 mg Duloxetine HCl (Cymbalta) 30 mg PO BID [facility] Last Admin: 05/20/17 08:57 Dose: 30 mg Finasteride (Proscar) 5 mg PO DAILY [facility] Last Admin: 05/20/17 08:57 Dose: 5 mg Folic Acid (Folate) 1 mg PO DAILY [facility] Last Admin: 05/20/17 08:57 Dose: 1 mg Latanoprost (Xalatan) 1 drops LEFT EYE HS [facility] Last Admin: 05/19/17 20:16 Dose: 1 drops Magnesium Hydroxide (Mom) 30 ml PO DAILY PRN PRN Reason: Constipation Multivitamins (Theragran) 1 tab PO DAILY [facility] Last Admin: 05/20/17 08:57 Dose: 1 tab Nitroglycerin (Nitrostat) 0.4 mg SL PRN PRN Oxybutynin Chloride (Ditropan) 5 mg PO TID [facility] Last Admin: 05/20/17 14:00 Dose: 5 mg Polyethylene Glycol (Miralax) 17 gm PO DAILY [facility] Last Admin: 05/20/17 08:58 Dose: 17 gm Pravastatin Sodium (Pravachol) 40 mg PO HS [facility] Last Admin: 05/19/17 20:16 Dose: 40 mg Senna/Docusate Sodium (Senna Plus Tablet) 1 tab PO BID [facility] Last Admin: 05/20/17 10:52 Dose: 1 tab Sodium Polystyrene Sulfonate (Esau-128) 1 applic LEFT EYE DAILY [facility] Last Admin: 05/20/17 08:56 Dose: 1 applic Tamsulosin HCl (Flomax) 0.4 mg PO DAILY [facility] Last Admin: 05/20/17 08:56 Dose: 0.4 mg Thiamine HCl (Vitamin B-1) 100 mg PO DAILY [facility] Last Admin: 05/20/17 08:57 Dose: 100 mg Subjective: Patient seen and chart reviewed. Case discussed with treatment team. On interview, patient reports his depression is improving and he has some insight into that his worries about someone seizing his house are not legitimate. He is looking forward to moving into [place] in [place] and feels it will be a big burden off of his . He greatly enjoys talking about his family, who visited last night. He has been isolating less and participating more. Patient denies any SI, HI or AVH. Patient denies any adverse side effects related to psychotropic medications. Nursing staff report patiandrew's irritability is decreasing. He has been adherent with medications. Patient slept well overnight. VSS. Patient is eating well. Psychotropic PRNs required in the past 24 hours: none. Start Time: 09:00 Stop Time: 09:20 Mental Status Exam Vitals: Last Vital Signs Temp 98.3 F 05/20/17 08:00 Pulse 55 L 05/20/17 08:00 Resp 16 05/20/17 08:00 BP 138/67 05/20/17 08:00 Pulse Ox 95 05/20/17 08:00 Height: 1.75 m Weight: 76.5 kg - Mental Status Exam Muscle Strength/Tone: Weak Dressing: Casual Grooming: Good Attitude: Cooperative Motor Activity: Normal Eye Contact: Good Speech: Normal Volume: Normal Rhythm: Appropriate Rhythm Orientation: Oriented X4 Mood: Neutral Affect: Relaxed Rate of Thoughts: Appropriate Rate Thought Organization: Organized Associations: Intact Abstract Reasoning: Intact, able to abstract Thought Content: Paranoia (improving) Perception/Psychotic: Perception Normal Language: Naming Intact Fund of Knowledge: Appropriate Memory: Grossly Intact Suicidal Ideation: Denies Homicidal Ideation: Denies Insight: Limited Judgement: Limited Impulse Control: Fair - Laboratory Result Diagrams: 05/12/17 07:03 05/12/17 07:03 Assessment and Plan (1) Major depressive disorder, single episode, severe with psychotic features Current visit: Yes Status: Acute (2) Alcohol use disorder Current visit: Yes Status: Acute (3) Spinal stenosis Current visit: Yes Status: Acute (4) Hypertension Current visit: Yes Status: Acute (5) CAD (coronary artery disease) Current visit: Yes Status: Acute (6) CHF (congestive heart failure) Current visit: Yes Status: Acute (7) COPD (chronic obstructive pulmonary disease) Current visit: Yes Status: Acute (8) History of hypothyroidism Current visit: Yes Status: Acute (9) History of pancreatitis Current visit: Yes Status: Acute (10) Chronic kidney disease Current visit: Yes Status: Acute (11) Right retinal detachment Current visit: Yes Status: Acute (12) History of hepatitis Current visit: Yes Status: Acute (13) History of kidney stones Current visit: Yes Status: Acute Continue current care - will discharge directly to safe environment at [place] once available. Patient will not have access to meds or alcohol. Hospital Course Summary Disclaimer: The visit summary below is not to be considered part of the above Progress Note. Hospital Course: Assessment Delusions and paranoia associated with severe depression Alcohol use Spinal stenosis causing chronic low back and lower extremity pain Hypertension Coronary artery disease (CABG 5 in March [address] 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 We'll need to monitor patient closely for alcohol withdrawal. PRN Serax and Ativan orders entered. Start thiamine, folate and multivitamin. Suspect he will have increased pain given he will not be able to medicate with alcohol. Will make acetaminophen available when necessary. Might consider scheduling this if he is having quite a bit of pain. Patient may self catheter as needed. 05/10/17 Psych: Started Cymbalta 30mg PO daily to target depression, pain. 05/11/17 Psych: Plan to continue current care, discuss symptoms, treatment and safety concerns with . 05/12/17 Psych: Start Abilify 1mg PO daily in AM to target paranoia/delusions. 05/13/17 Psych: Continue current care for the time being and assess response/ tolerance to starting Abilify. Will likely increase Cymbalta to 30mg PO BID soon to target mood, pain. 05/13/17 19:18 Fall without LOC on 05/13/17, minor head injury with pain to left parietal region. Neurovascularly intact and VSS. Will have nsg staff repeat neuro checks tonight and again in am. Labs done on 05/12/17 were very stable. Hold ASA on . Head CT done earlier today was negative for acute findings. 05/14/17 17:44 Pt mood improved. Continue current care 05/15/17 11:14 Remains depressed but no S/I. Continue current care 05/16/17 Medically stable, no evidence to support concussion or neuro compromise following fall on 05/13. VSS, noted bradycardia in the 50s, asymptomatic (he does take Coreg). 05/16/17 Psych: Will increase Cymbalta to 30mg PO BID to target mood, anxiety. Recommend individual counseling and psychiatric care after discharge to AL, no access to EtOH. Continuing to work on safe discharge plan in conjunction with as patient remains high risk for suicide. 05/17/17 Psych: Continue current care -attempting to find facility and make safe discharge plans as above. 05/18/17 Psych: Continue current care. For safety of patient, I believe patient will need to be discharged directly to AL rather than returning home as his is not able to provide 24/7 supervision. Another AL assessing today. Continue current care otherwise; patient is benefitting from continued socialization and therapies on unit. 05/19/17 Psych: Continue current care - will discuss Coreg dosing with hospitalist as I am concerned bradycardia may lead to more fatigue and less motivation for patient to participate in activities, etc. 05/20/17 Psych: Continue current care - will discharge directly to safe environment at AL once available. Patient will not have access to meds or alcohol. I do not feel is able to adequately to supervise for safety at home.
[2017-05-20] MEDS: PRAVASTATIN 40 MG TABLET PO SCH (20:03)
[2017-05-20] MEDS: LATANOPROST 0.005% EYE DROPS 2.5ml LEFT EYE SCH (20:04)
[2017-05-21] MEDS: ARIPiprazole 2 MG TABLET PO SCH (08:29)
[2017-05-21] MEDS: MULTI-VITAMIN PLAIN TABLET PO SCH (08:31)
[2017-05-21] MEDS: FINASTERIDE 5 MG TABLET PO SCH (08:31)
[2017-05-21] MEDS: DULOXETINE 30 MG CAPSULE PO SCH ×2 (08:31→21:28)
[2017-05-21] MEDS: TAMSULOSIN 0.4 MG CAPSULE PO SCH (08:31)
[2017-05-21] MEDS: FOLIC ACID 1 MG TABLET PO SCH (08:31)
[2017-05-21] MEDS: ASPIRIN 81 MG CHEWABLE TABLET PO SCH (08:31)
[2017-05-21] MEDS: SENNA + DOCUSATE TABLET PO SCH ×2 (08:31→21:28)
[2017-05-21] MEDS: CARVEDILOL 6.25 MG TABLET PO SCH ×2 (08:31→17:03)
[2017-05-21] MEDS: SODIUM CHLORIDE 5% LEFT EYE SCH (08:32)
[2017-05-21] MEDS: POLYETHYL GLYCOL 3350 17gm PACKET PO SCH (08:32)
[2017-05-21] MEDS: EYE LEFT EYE SCH (08:32)
[2017-05-21] MEDS: REFRESH CLASSIC Eye Drops 0.4ml RIGHT EYE SCH (08:32)
--- NOTE | 2017-05-21 12:43 | Neuropsych Progress Note ---
[facility] Subjective Date: 05/21/17 - Sujective/Severity of Illness Medications: Acetaminophen (Tylenol) 650 mg PO Q5H PRN PRN Reason: Discomfort Al Hydroxide/Mg Hydroxide (Maalox Plus) 30 ml PO Q4H PRN PRN Reason: Indigestion Last Admin: 05/10/17 17:16 Dose: 30 ml Aripiprazole (Abilify) 1 mg PO DAILY [facility] Last Admin: 05/21/17 08:29 Dose: 1 mg Artificial Tears (Refresh Classic) 1 drop RIGHT EYE DAILY [facility] Last Admin: 05/21/17 08:32 Dose: 1 drop Aspirin (Asa) 81 mg PO DAILY [facility] Last Admin: 05/21/17 08:31 Dose: 81 mg Carvedilol (Coreg) 6.25 mg PO [facility] Last Admin: 05/21/17 08:31 Dose: 6.25 mg Duloxetine HCl (Cymbalta) 30 mg PO BID [facility] Last Admin: 05/21/17 08:31 Dose: 30 mg Finasteride (Proscar) 5 mg PO DAILY [facility] Last Admin: 05/21/17 08:31 Dose: 5 mg Folic Acid (Folate) 1 mg PO DAILY [facility] Last Admin: 05/21/17 08:31 Dose: 1 mg Latanoprost (Xalatan) 1 drops LEFT EYE HS [facility] Last Admin: 05/20/17 20:04 Dose: 1 drops Magnesium Hydroxide (Mom) 30 ml PO DAILY PRN PRN Reason: Constipation Multivitamins (Theragran) 1 tab PO DAILY [facility] Last Admin: 05/21/17 08:31 Dose: 1 tab Nitroglycerin (Nitrostat) 0.4 mg SL PRN PRN Oxybutynin Chloride (Ditropan) 5 mg PO TID [facility] Last Admin: 05/21/17 08:31 Dose: 5 mg Polyethylene Glycol (Miralax) 17 gm PO DAILY [facility] Last Admin: 05/21/17 08:32 Dose: Not Given Pravastatin Sodium (Pravachol) 40 mg PO HS [facility] Last Admin: 05/20/17 20:03 Dose: 40 mg Senna/Docusate Sodium (Senna Plus Tablet) 1 tab PO BID [facility] Last Admin: 05/21/17 08:31 Dose: 1 tab Sodium Polystyrene Sulfonate (Esau-128) 1 applic LEFT EYE DAILY [facility] Last Admin: 05/21/17 08:32 Dose: 1 applic Tamsulosin HCl (Flomax) 0.4 mg PO DAILY [facility] Last Admin: 05/21/17 08:31 Dose: 0.4 mg Thiamine HCl (Vitamin B-1) 100 mg PO DAILY [facility] Last Admin: 05/21/17 08:31 Dose: 100 mg Subjective: Patient seen and chart reviewed. Nursing reports pt is doing well. Sleeping well and has a good appetite. On face to face the pt states he is doing well. Mood improved. Denies S/I. States he is going [place] and is looking forward to it. Voices no concerns at this time Start Time: 12:15 Stop Time: 12:30 Mental Status Exam Vitals: Last Vital Signs Temp 97.4 F 05/21/17 07:54 Pulse 51 L 05/21/17 07:54 Resp 18 05/21/17 07:54 BP 138/67 05/21/17 07:54 Pulse Ox 96 05/21/17 07:54 Height: 1.75 m Weight: 76.5 kg - Mental Status Exam Muscle Strength/Tone: Weak Dressing: Casual Grooming: Good Attitude: Cooperative Motor Activity: Normal Eye Contact: Good Speech: Normal Volume: Normal Rhythm: Appropriate Rhythm Orientation: Oriented X4 Mood: Neutral Rate of Thoughts: Appropriate Rate Thought Organization: Organized Associations: Intact Abstract Reasoning: Intact, able to abstract Thought Content: Paranoia (improving) Perception/Psychotic: Perception Normal Language: Naming Intact Fund of Knowledge: Appropriate Memory: Grossly Intact Suicidal Ideation: Denies Homicidal Ideation: Denies Insight: Limited Judgement: Limited Impulse Control: Fair - Laboratory Result Diagrams: 05/12/17 07:03 05/12/17 07:03 Assessment and Plan (1) Major depressive disorder, single episode, severe with psychotic features Current visit: Yes Status: Acute (2) Spinal stenosis Current visit: Yes Status: Acute (3) Hypertension Current visit: Yes Status: Acute (4) CAD (coronary artery disease) Current visit: Yes Status: Acute (5) CHF (congestive heart failure) Current visit: Yes Status: Acute (6) COPD (chronic obstructive pulmonary disease) Current visit: Yes Status: Acute (7) History of hypothyroidism Current visit: Yes Status: Acute (8) History of pancreatitis Current visit: Yes Status: Acute (9) Chronic kidney disease Current visit: Yes Status: Acute (10) Right retinal detachment Current visit: Yes Status: Acute (11) History of hepatitis Current visit: Yes Status: Acute (12) History of kidney stones Current visit: Yes Status: Acute (13) Alcohol use disorder Current visit: Yes Status: Acute Hospital Course Summary Disclaimer: The visit summary below is not to be considered part of the above Progress Note. Hospital Course: Assessment Delusions and paranoia associated with severe depression Alcohol use Spinal stenosis causing chronic low back and lower extremity pain Hypertension Coronary artery disease (CABG 5 in [address] 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 We'll need to monitor patient closely for alcohol withdrawal. PRN Serax and Ativan orders entered. Start thiamine, folate and multivitamin. Suspect he will have increased pain given he will not be able to medicate with alcohol. Will make acetaminophen available when necessary. Might consider scheduling this if he is having quite a bit of pain. Patient may self catheter as needed. 05/10/17 Psych: Started Cymbalta 30mg PO daily to target depression, pain. 05/11/17 Psych: Plan to continue current care, discuss symptoms, treatment and safety concerns with . 05/12/17 Psych: Start Abilify 1mg PO daily in AM to target paranoia/delusions. 05/13/17 Psych: Continue current care for the time being and assess response/ tolerance to starting Abilify. Will likely increase Cymbalta to 30mg PO BID soon to target mood, pain. 05/13/17 19:18 Fall without LOC on 05/13/17, minor head injury with pain to left parietal region. Neurovascularly intact and VSS. Will have [facility] staff repeat neuro checks tonight and again in am. Labs done on 05/12/17 were very stable. Hold ASA on . Head CT done earlier today was negative for acute findings. 05/14/17 17:44 Pt mood improved. Continue current care 05/15/17 11:14 Remains depressed but no S/I. Continue current care 05/16/17 Medically stable, no evidence to support concussion or neuro compromise following fall on 05/13. VSS, noted bradycardia in the 50s, asymptomatic (he does take Coreg). 05/16/17 Psych: Will increase Cymbalta to 30mg PO BID to target mood, anxiety. Recommend individual counseling and psychiatric care after discharge to [place], no access to EtOH. Continuing to work on safe discharge plan in conjunction with as patient remains high risk for suicide. 05/17/17 Psych: Continue current care -attempting to find facility and make safe discharge plans as above. 05/18/17 Psych: Continue current care. For safety of patient, I believe patient will need to be discharged directly to AL rather than returning home as his is not able to provide 20/12 supervision. Another AL assessing today. Continue current care otherwise; patient is benefitting from continued socialization and therapies on unit. 05/19/17 Psych: Continue current care - will discuss Coreg dosing with hospitalist as I am concerned bradycardia may lead to more fatigue and less motivation for patient to participate in activities, etc. 05/20/17 Psych: Continue current care - will discharge directly to safe environment at AL once available. Patient will not have access to meds or alcohol. I do not feel is able to adequately to supervise for safety at home. 05/21/17 12:42 Doing well. Continue current care
[2017-05-21] MEDS: PRAVASTATIN 40 MG TABLET PO SCH (21:28)
[2017-05-21] MEDS: LATANOPROST 0.005% EYE DROPS 2.5ml LEFT EYE SCH (21:28)
[2017-05-22] MEDS: ARIPiprazole 2 MG TABLET PO SCH (08:03)
[2017-05-22] MEDS: CARVEDILOL 6.25 MG TABLET PO SCH ×2 (08:03→17:06)
[2017-05-22] MEDS: DULOXETINE 30 MG CAPSULE PO SCH ×2 (08:04→20:04)
[2017-05-22] MEDS: FOLIC ACID 1 MG TABLET PO SCH (08:04)
[2017-05-22] MEDS: MULTI-VITAMIN PLAIN TABLET PO SCH (08:04)
[2017-05-22] MEDS: FINASTERIDE 5 MG TABLET PO SCH (08:04)
[2017-05-22] MEDS: ASPIRIN 81 MG CHEWABLE TABLET PO SCH (08:04)
[2017-05-22] MEDS: POLYETHYL GLYCOL 3350 17gm PACKET PO SCH (08:05)
[2017-05-22] MEDS: SENNA + DOCUSATE TABLET PO SCH ×2 (08:05→20:04)
[2017-05-22] MEDS: REFRESH CLASSIC Eye Drops 0.4ml RIGHT EYE SCH (08:05)
[2017-05-22] MEDS: SODIUM CHLORIDE 5% LEFT EYE SCH (08:06)
[2017-05-22] MEDS: TAMSULOSIN 0.4 MG CAPSULE PO SCH (08:06)
[2017-05-22] MEDS: EYE LEFT EYE SCH (08:06)
--- NOTE | 2017-05-22 12:38 | Neuropsych Progress Note ---
[facility] Subjective Date: 05/22/17 - Sujective/Severity of Illness Medications: Acetaminophen (Tylenol) 650 mg PO Q5H PRN PRN Reason: Discomfort Al Hydroxide/Mg Hydroxide (Maalox Plus) 30 ml PO Q4H PRN PRN Reason: Indigestion Last Admin: 05/10/17 17:16 Dose: 30 ml Aripiprazole (Abilify) 1 mg PO DAILY [facility] Last Admin: 05/22/17 08:03 Dose: 1 mg Artificial Tears (Refresh Classic) 1 drop RIGHT EYE DAILY [facility] Last Admin: 05/22/17 08:05 Dose: 1 drop Aspirin (Asa) 81 mg PO DAILY [facility] Last Admin: 05/22/17 08:04 Dose: 81 mg Carvedilol (Coreg) 6.25 mg PO [facility] Last Admin: 05/22/17 08:03 Dose: 6.25 mg Duloxetine HCl (Cymbalta) 30 mg PO BID [facility] Last Admin: 05/22/17 08:04 Dose: 30 mg Finasteride (Proscar) 5 mg PO DAILY [facility] Last Admin: 05/22/17 08:04 Dose: 5 mg Folic Acid (Folate) 1 mg PO DAILY [facility] Last Admin: 05/22/17 08:04 Dose: 1 mg Latanoprost (Xalatan) 1 drops LEFT EYE HS [facility] Last Admin: 05/21/17 21:28 Dose: 1 drops Magnesium Hydroxide (Mom) 30 ml PO DAILY PRN PRN Reason: Constipation Multivitamins (Theragran) 1 tab PO DAILY [facility] Last Admin: 05/22/17 08:04 Dose: 1 tab Nitroglycerin (Nitrostat) 0.4 mg SL PRN PRN Oxybutynin Chloride (Ditropan) 5 mg PO TID [facility] Last Admin: 05/22/17 08:05 Dose: 5 mg Polyethylene Glycol (Miralax) 17 gm PO DAILY [facility] Last Admin: 05/22/17 08:05 Dose: 17 gm Pravastatin Sodium (Pravachol) 40 mg PO HS [facility] Last Admin: 05/21/17 21:28 Dose: 40 mg Senna/Docusate Sodium (Senna Plus Tablet) 1 tab PO BID [facility] Last Admin: 05/22/17 08:05 Dose: 1 tab Sodium Polystyrene Sulfonate (Esau-128) 1 applic LEFT EYE DAILY [facility] Last Admin: 05/22/17 08:06 Dose: 1 applic Tamsulosin HCl (Flomax) 0.4 mg PO DAILY [facility] Last Admin: 05/22/17 08:06 Dose: 0.4 mg Thiamine HCl (Vitamin B-1) 100 mg PO DAILY [facility] Last Admin: 05/22/17 08:06 Dose: 100 mg Subjective: Patient seen and chart reviewed. Nursing reports pt is doing well. Sleeping well and has a good appetite. On face to face the pt states his mood is stable and he denies any S/I. He reports he is looking forward to going to [place] on Tuesday. Tolerating meds. Start Time: 12:00 Stop Time: 12:15 Mental Status Exam Vitals: Last Vital Signs Temp 98.2 F 05/22/17 08:00 Pulse 56 L 05/22/17 08:00 Resp 18 05/22/17 08:00 BP 114/54 05/22/17 08:00 Pulse Ox 96 05/22/17 08:00 Height: 1.75 m Weight: 79.6 kg - Mental Status Exam Muscle Strength/Tone: Normal Dressing: Casual Grooming: Good Attitude: Cooperative Motor Activity: Normal Eye Contact: Good Speech: Normal Volume: Normal Rhythm: Appropriate Rhythm Orientation: Oriented X4 Mood: Neutral Affect: Bright Rate of Thoughts: Appropriate Rate Thought Organization: Organized Associations: Intact Abstract Reasoning: Intact, able to abstract Thought Content: Normal Perception/Psychotic: Perception Normal Language: Naming Intact Fund of Knowledge: Appropriate Memory: Grossly Intact Suicidal Ideation: Denies Homicidal Ideation: Denies Insight: Limited Judgement: Limited Impulse Control: Fair - Laboratory Result Diagrams: 05/12/17 07:03 05/12/17 07:03 Assessment and Plan (1) Major depressive disorder, single episode, severe with psychotic features Current visit: Yes Status: Acute (2) Spinal stenosis Current visit: Yes Status: Acute (3) Hypertension Current visit: Yes Status: Acute (4) CAD (coronary artery disease) Current visit: Yes Status: Acute (5) CHF (congestive heart failure) Current visit: Yes Status: Acute (6) COPD (chronic obstructive pulmonary disease) Current visit: Yes Status: Acute (7) History of hypothyroidism Current visit: Yes Status: Acute (8) History of pancreatitis Current visit: Yes Status: Acute (9) Chronic kidney disease Current visit: Yes Status: Acute (10) Right retinal detachment Current visit: Yes Status: Acute (11) History of hepatitis Current visit: Yes Status: Acute (12) History of kidney stones Current visit: Yes Status: Acute (13) Alcohol use disorder Current visit: Yes Status: Acute Hospital Course Summary Disclaimer: The visit summary below is not to be considered part of the above Progress Note. Hospital Course: Assessment Delusions and paranoia associated with severe depression Alcohol use Spinal stenosis causing chronic low back and lower extremity pain Hypertension Coronary artery disease (CABG 5 in [address] 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 We'll need to monitor patient closely for alcohol withdrawal. PRN Serax and Ativan orders entered. Start thiamine, folate and multivitamin. Suspect he will have increased pain given he will not be able to medicate with alcohol. Will make acetaminophen available when necessary. Might consider scheduling this if he is having quite a bit of pain. Patient may self catheter as needed. 05/10/17 Psych: Started Cymbalta 30mg PO daily to target depression, pain. 05/11/17 Psych: Plan to continue current care, discuss symptoms, treatment and safety concerns with . 05/12/17 Psych: Start Abilify 1mg PO daily in AM to target paranoia/delusions. 05/13/17 Psych: Continue current care for the time being and assess response/ tolerance to starting Abilify. Will likely increase Cymbalta to 30mg PO BID soon to target mood, pain. 05/13/17 19:18 Fall without LOC on 05/13/17, minor head injury with pain to left parietal region. Neurovascularly intact and VSS. Will have [facility] staff repeat neuro checks tonight and again in am. Labs done on 05/12/17 were very stable. Hold ASA on . Head CT done earlier today was negative for acute findings. 05/14/17 17:44 Pt mood improved. Continue current care 05/15/17 11:14 Remains depressed but no S/I. Continue current care 05/16/17 Medically stable, no evidence to support concussion or neuro compromise following fall on 05/13. VSS, noted bradycardia in the 50s, asymptomatic (he does take Coreg). 05/16/17 Psych: Will increase Cymbalta to 30mg PO BID to target mood, anxiety. Recommend individual counseling and psychiatric care after discharge to AL, no access to EtOH. Continuing to work on safe discharge plan in conjunction with as patient remains high risk for suicide. 05/17/17 Psych: Continue current care -attempting to find facility and make safe discharge plans as above. 05/18/17 Psych: Continue current care. For safety of patient, I believe patient will need to be discharged directly to AL rather than returning home as his is not able to provide 20/12 supervision. Another AL assessing today. Continue current care otherwise; patient is benefitting from continued socialization and therapies on unit. 05/19/17 Psych: Continue current care - will discuss Coreg dosing with hospitalist as I am concerned bradycardia may lead to more fatigue and less motivation for patient to participate in activities, etc. 05/20/17 Psych: Continue current care - will discharge directly to safe environment at AL once available. Patient will not have access to meds or alcohol. I do not feel is able to adequately to supervise for safety at home. 05/21/17 12:42 Doing well. Continue current care 05/22/17 12:38 Doing well. Continue current care
[2017-05-22] MEDS: LATANOPROST 0.005% EYE DROPS 2.5ml LEFT EYE SCH (20:04)
[2017-05-22] MEDS: PRAVASTATIN 40 MG TABLET PO SCH (20:04)
[2017-05-23] MEDS: CARVEDILOL 6.25 MG TABLET PO SCH ×2 (08:08→17:31)
[2017-05-23] MEDS: FOLIC ACID 1 MG TABLET PO SCH (08:09)
[2017-05-23] MEDS: POLYETHYL GLYCOL 3350 17gm PACKET PO SCH (08:09)
[2017-05-23] MEDS: ASPIRIN 81 MG CHEWABLE TABLET PO SCH (08:09)
[2017-05-23] MEDS: DULOXETINE 30 MG CAPSULE PO SCH ×3 (08:09→20:48)
[2017-05-23] MEDS: MULTI-VITAMIN PLAIN TABLET PO SCH (08:09)
[2017-05-23] MEDS: REFRESH CLASSIC Eye Drops 0.4ml RIGHT EYE SCH (08:09)
[2017-05-23] MEDS: ARIPiprazole 2 MG TABLET PO SCH (08:09)
[2017-05-23] MEDS: FINASTERIDE 5 MG TABLET PO SCH (08:09)
[2017-05-23] MEDS: SODIUM CHLORIDE 5% LEFT EYE SCH (08:10)
[2017-05-23] MEDS: EYE LEFT EYE SCH (08:10)
[2017-05-23] MEDS: SENNA + DOCUSATE TABLET PO SCH ×3 (08:10→20:48)
[2017-05-23] MEDS: TAMSULOSIN 0.4 MG CAPSULE PO SCH (08:10)
--- NOTE | 2017-05-23 10:59 | Neuropsych Progress Note ---
[facility] Subjective Date: 05/23/17 - Sujective/Severity of Illness Medications: Acetaminophen (Tylenol) 650 mg PO Q5H PRN PRN Reason: Discomfort Al Hydroxide/Mg Hydroxide (Maalox Plus) 30 ml PO Q4H PRN PRN Reason: Indigestion Last Admin: 05/10/17 17:16 Dose: 30 ml Aripiprazole (Abilify) 1 mg PO DAILY [facility] Last Admin: 05/23/17 08:09 Dose: 1 mg Artificial Tears (Refresh Classic) 1 drop RIGHT EYE DAILY [facility] Last Admin: 05/23/17 08:09 Dose: 1 drop Aspirin (Asa) 81 mg PO DAILY [facility] Last Admin: 05/23/17 08:09 Dose: 81 mg Carvedilol (Coreg) 6.25 mg PO [facility] Last Admin: 05/23/17 08:08 Dose: 6.25 mg Duloxetine HCl (Cymbalta) 30 mg PO BID [facility] Last Admin: 05/23/17 08:09 Dose: 30 mg Finasteride (Proscar) 5 mg PO DAILY [facility] Last Admin: 05/23/17 08:09 Dose: 5 mg Folic Acid (Folate) 1 mg PO DAILY [facility] Last Admin: 05/23/17 08:09 Dose: 1 mg Latanoprost (Xalatan) 1 drops LEFT EYE HS [facility] Last Admin: 05/22/17 20:04 Dose: 1 drops Magnesium Hydroxide (Mom) 30 ml PO DAILY PRN PRN Reason: Constipation Multivitamins (Theragran) 1 tab PO DAILY [facility] Last Admin: 05/23/17 08:09 Dose: 1 tab Nitroglycerin (Nitrostat) 0.4 mg SL PRN PRN Oxybutynin Chloride (Ditropan) 5 mg PO TID [facility] Last Admin: 05/23/17 08:09 Dose: 5 mg Polyethylene Glycol (Miralax) 17 gm PO DAILY [facility] Last Admin: 05/23/17 08:09 Dose: 17 gm Pravastatin Sodium (Pravachol) 40 mg PO HS [facility] Last Admin: 05/22/17 20:04 Dose: 40 mg Senna/Docusate Sodium (Senna Plus Tablet) 1 tab PO BID [facility] Last Admin: 05/23/17 08:10 Dose: 1 tab Sodium Polystyrene Sulfonate (Esau-128) 1 applic LEFT EYE DAILY [facility] Last Admin: 05/23/17 08:10 Dose: 1 applic Tamsulosin HCl (Flomax) 0.4 mg PO DAILY [facility] Last Admin: 05/23/17 08:10 Dose: 0.4 mg Thiamine HCl (Vitamin B-1) 100 mg PO DAILY [facility] Last Admin: 05/23/17 08:10 Dose: 100 mg Subjective: Patient seen and chart reviewed. Nursing reports pt is doing well. Sleeping well and has a good appetite. On face to face the pt states he is doing well. Mood is stable and denies any S/I. Tolerating meds. Looking forward to [place] tomorrow Start Time: 10:00 Stop Time: 10:15 Mental Status Exam Vitals: Last Vital Signs Temp 97.5 F 05/23/17 07:41 Pulse 58 L 05/23/17 07:41 Resp 20 05/23/17 07:41 BP 134/64 05/23/17 07:41 Pulse Ox 97 05/23/17 07:41 Height: 1.75 m Weight: 79.6 kg - Mental Status Exam Muscle Strength/Tone: Normal Dressing: Casual Grooming: Good Attitude: Cooperative Motor Activity: Normal Eye Contact: Good Speech: Normal Volume: Normal Rhythm: Appropriate Rhythm Orientation: Oriented X4 Mood: Euthymic Rate of Thoughts: Appropriate Rate Thought Organization: Organized Associations: Intact Abstract Reasoning: Intact, able to abstract Thought Content: Normal Perception/Psychotic: Perception Normal Language: Naming Intact Fund of Knowledge: Appropriate Memory: Grossly Intact Suicidal Ideation: Denies Homicidal Ideation: Denies Insight: Limited Judgement: Limited Impulse Control: Fair - Laboratory Result Diagrams: 05/12/17 07:03 05/12/17 07:03 Assessment and Plan (1) Major depressive disorder, single episode, severe with psychotic features Current visit: Yes Status: Acute (2) Spinal stenosis Current visit: Yes Status: Acute (3) Hypertension Current visit: Yes Status: Acute (4) CAD (coronary artery disease) Current visit: Yes Status: Acute (5) CHF (congestive heart failure) Current visit: Yes Status: Acute (6) COPD (chronic obstructive pulmonary disease) Current visit: Yes Status: Acute (7) History of hypothyroidism Current visit: Yes Status: Acute (8) History of pancreatitis Current visit: Yes Status: Acute (9) Chronic kidney disease Current visit: Yes Status: Acute (10) Right retinal detachment Current visit: Yes Status: Acute (11) History of hepatitis Current visit: Yes Status: Acute (12) History of kidney stones Current visit: Yes Status: Acute (13) Alcohol use disorder Current visit: Yes Status: Acute Hospital Course Summary Disclaimer: The visit summary below is not to be considered part of the above Progress Note. Hospital Course: Assessment Delusions and paranoia associated with severe depression Alcohol use Spinal stenosis causing chronic low back and lower extremity pain Hypertension Coronary artery disease (CABG 5 in [address] 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 We'll need to monitor patient closely for alcohol withdrawal. PRN Serax and Ativan orders entered. Start thiamine, folate and multivitamin. Suspect he will have increased pain given he will not be able to medicate with alcohol. Will make acetaminophen available when necessary. Might consider scheduling this if he is having quite a bit of pain. Patient may self catheter as needed. 05/10/17 Psych: Started Cymbalta 30mg PO daily to target depression, pain. 05/11/17 Psych: Plan to continue current care, discuss symptoms, treatment and safety concerns with . 05/12/17 Psych: Start Abilify 1mg PO daily in AM to target paranoia/delusions. 05/13/17 Psych: Continue current care for the time being and assess response/ tolerance to starting Abilify. Will likely increase Cymbalta to 30mg PO BID soon to target mood, pain. 05/13/17 19:18 Fall without LOC on 05/13/17, minor head injury with pain to left parietal region. Neurovascularly intact and VSS. Will have [facility] staff repeat neuro checks tonight and again in am. Labs done on 05/12/17 were very stable. Hold ASA on . Head CT done earlier today was negative for acute findings. 05/14/17 17:44 Pt mood improved. Continue current care 05/15/17 11:14 Remains depressed but no S/I. Continue current care 05/16/17 Medically stable, no evidence to support concussion or neuro compromise following fall on 05/13. VSS, noted bradycardia in the 50s, asymptomatic (he does take Coreg). 05/16/17 Psych: Will increase Cymbalta to 30mg PO BID to target mood, anxiety. Recommend individual counseling and psychiatric care after discharge to [facility], no access to EtOH. Continuing to work on safe discharge plan in conjunction with as patient remains high risk for suicide. 05/17/17 Psych: Continue current care -attempting to find facility and make safe discharge plans as above. 05/18/17 Psych: Continue current care. For safety of patient, I believe patient will need to be discharged directly to AL rather than returning home as his is not able to provide 20/12 supervision. Another AL assessing today. Continue current care otherwise; patient is benefitting from continued socialization and therapies on unit. 05/19/17 Psych: Continue current care - will discuss Coreg dosing with hospitalist as I am concerned bradycardia may lead to more fatigue and less motivation for patient to participate in activities, etc. 05/20/17 Psych: Continue current care - will discharge directly to safe environment at AL once available. Patient will not have access to meds or alcohol. I do not feel is able to adequately to supervise for safety at home. 05/21/17 12:42 Doing well. Continue current care 05/22/17 12:38 Doing well. Continue current care 05/23/17 10:58 Plan D/C for tomorrow
[2017-05-23] MEDS: LATANOPROST 0.005% EYE DROPS 2.5ml LEFT EYE SCH ×2 (19:49→20:48)
[2017-05-23] MEDS: PRAVASTATIN 40 MG TABLET PO SCH ×2 (19:50→20:48)
[2017-05-24] MEDS: FINASTERIDE 5 MG TABLET PO SCH (09:19)
[2017-05-24] MEDS: DULOXETINE 30 MG CAPSULE PO SCH (09:19)
[2017-05-24] MEDS: ASPIRIN 81 MG CHEWABLE TABLET PO SCH (09:19)
[2017-05-24] MEDS: SENNA + DOCUSATE TABLET PO SCH (09:19)
[2017-05-24] MEDS: ARIPiprazole 2 MG TABLET PO SCH (09:19)
[2017-05-24] MEDS: FOLIC ACID 1 MG TABLET PO SCH (09:20)
[2017-05-24] MEDS: TAMSULOSIN 0.4 MG CAPSULE PO SCH (09:20)
[2017-05-24] MEDS: CARVEDILOL 6.25 MG TABLET PO SCH (09:20)
[2017-05-24] MEDS: MULTI-VITAMIN PLAIN TABLET PO SCH (09:20)
[2017-05-24] MEDS: EYE LEFT EYE SCH (09:21)
[2017-05-24] MEDS: POLYETHYL GLYCOL 3350 17gm PACKET PO SCH (09:21)
[2017-05-24] MEDS: SODIUM CHLORIDE 5% LEFT EYE SCH (09:21)
[2017-05-24] MEDS: REFRESH CLASSIC Eye Drops 0.4ml RIGHT EYE SCH (09:24)
[2017-05-24 09:36] VITALS: BP 135/66; PULSE 53; RESP 18; TEMP 97; O2SAT 98
--- NOTE | 2017-05-25 12:19 | Neuropsych Progress Note ---
[facility] Subjective Date: 05/24/17 - Sujective/Severity of Illness Medications: See previous MAR Subjective: Patient seen and chart reviewed. Case discussed with treatment team. On interview, patient is calm and pleasant, reports mood improvement and significantly less anxiety/paranoia as compared to admission. Patient denies any SI, HI or AVH. Patient denies any adverse side effects related to psychotropic medications. Nursing staff report patient has been doing well on unit, no behavioral issues, has been engaging, etc. Patient has been adherent with medications. Patient slept 4.5 hours overnight as he stayed up late to watch football game. VSS. Patient is eating well. Psychotropic PRNs required in the past 24 hours: none. Met with patient and prior to discharge and discussed diagnoses, treatment , follow up, etc. Stressed importance of f/u, avoiding EtOH, and recommended formal driving evaluation before he drives again. They expressed understanding and expressed appreciation for his care. Patient will not have access to medications, weapons/firearms at [facility] facility. Start Time: 10:20 Stop Time: 11:00 Care: >50% of this visit spent in counseling/coordination care. Mental Status Exam Vitals: Last Vital Signs Temp 97.0 F 05/24/17 08:00 Pulse 53 L 05/24/17 08:00 Resp 18 05/24/17 08:00 BP 135/66 05/24/17 08:00 Pulse Ox 98 05/24/17 08:00 Height: 1.75 m Weight: 79.6 kg - Mental Status Exam Muscle Strength/Tone: Normal Dressing: Casual Grooming: Good Attitude: Cooperative Motor Activity: Normal Eye Contact: Good Speech: Normal Volume: Normal Rhythm: Appropriate Rhythm Orientation: Oriented X4 Mood: Euthymic Affect: Relaxed Rate of Thoughts: Appropriate Rate Thought Organization: Organized Associations: Intact Abstract Reasoning: Intact, able to abstract Thought Content: Normal Perception/Psychotic: Perception Normal Language: Naming Intact Fund of Knowledge: Appropriate Memory: Grossly Intact Suicidal Ideation: Denies Homicidal Ideation: Denies Insight: Fair Judgement: Fair Impulse Control: Good - Laboratory Result Diagrams: 05/12/17 07:03 05/12/17 07:03 Assessment and Plan (1) Major depressive disorder, single episode, severe with psychotic features Status: Acute Improved by time of discharge R/O Neurocognitive disorder (2) Alcohol use disorder Status: Acute (3) Spinal stenosis Status: Acute (4) Hypertension Status: Acute (5) CAD (coronary artery disease) Status: Acute (6) CHF (congestive heart failure) Status: Acute (7) COPD (chronic obstructive pulmonary disease) Status: Acute (8) History of hypothyroidism Status: Acute (9) History of pancreatitis Status: Acute (10) Chronic kidney disease Status: Acute (11) Right retinal detachment Status: Acute (12) History of hepatitis Status: Acute (13) History of kidney stones Status: Acute Discharge to [facility] with outpatient psychiatric follow-up. Hospital Course Summary Disclaimer: The visit summary below is not to be considered part of the above Progress Note. Hospital Course: Assessment Delusions and paranoia associated with severe depression Alcohol use Spinal stenosis causing chronic low back and lower extremity pain Hypertension Coronary artery disease (CABG [address] in [address] 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 We'll need to monitor patient closely for alcohol withdrawal. PRN Serax and Ativan orders entered. Start thiamine, folate and multivitamin. Suspect he will have increased pain given he will not be able to medicate with alcohol. Will make acetaminophen available when necessary. Might consider scheduling this if he is having quite a bit of pain. Patient may self catheter as needed. 05/10/17 Psych: Started Cymbalta 30mg PO daily to target depression, pain. 05/11/17 Psych: Plan to continue current care, discuss symptoms, treatment and safety concerns with . 05/12/17 Psych: Start Abilify 1mg PO daily in AM to target paranoia/delusions. 05/13/17 Psych: Continue current care for the time being and assess response/ tolerance to starting Abilify. Will likely increase Cymbalta to 30mg PO BID soon to target mood, pain. 05/13/17 19:18 Fall without LOC on 05/13/17, minor head injury with pain to left parietal region. Neurovascularly intact and VSS. [place] [facility] [place] tonight and again in am. Labs done on 05/12/17 were very stable. Hold ASA on . Head CT done earlier today was negative for acute findings. 05/14/17 17:44 Pt mood improved. Continue current care 05/15/17 11:14 Remains depressed but no S/I. Continue current care 05/16/17 Medically stable, no evidence to support concussion or neuro compromise following fall on 05/13. VSS, noted bradycardia in the 50s, asymptomatic (he does take Coreg). 05/16/17 Psych: Will increase Cymbalta to 30mg PO BID to target mood, anxiety. Recommend individual counseling and psychiatric care after discharge to AL, no access to EtOH. Continuing to work on safe discharge plan in conjunction with as patient remains high risk for suicide. 05/17/17 Psych: Continue current care -attempting to find facility and make safe discharge plans as above. 05/18/17 Psych: Continue current care. For safety of patient, I believe patient will need to be discharged directly to AL rather than returning home as his is not able to provide / supervision. Another AL assessing today. Continue current care otherwise; patient is benefitting from continued socialization and therapies on unit. 05/19/17 Psych: Continue current care - will discuss Coreg dosing with hospitalist as I am concerned bradycardia may lead to more fatigue and less motivation for patient to participate in activities, etc. 05/20/17 Psych: Continue current care - will discharge directly to safe environment at AL once available. Patient will not have access to meds or alcohol. I do not feel is able to adequately to supervise for safety at home. 05/21/17 12:42 Doing well. Continue current care 05/22/17 12:38 Doing well. Continue current care 05/23/17 10:58 Plan D/C for tomorrow
--- NOTE | 2017-05-25 12:23 | Neuropsychiatric Disch Summary ---
Discharge Information Date of admission: 05/09/17 17:45 Anticipated date of discharge: 05/24/17 Attending Physician: Ana Feliciano MD Consults: 05/09/17 18:29 Case Management Consult [CONS] Routine Reason For Exam: Optimization of medical comorbidities Physician Consult [CONS] Routine Consulting Provider: Rojelio Wilhelm Reason For Exam: Optimization of medical comorbidities Ordering Provider has Notified Supervisor [place]du[place]: No Comment: Nursing - please notify - Discharge Diagnosis (1) Major depressive disorder, single episode, severe with psychotic features Status: Acute (2) Alcohol use disorder Status: Acute (3) Spinal stenosis Status: Acute (4) Hypertension Status: Acute (5) CAD (coronary artery disease) Status: Acute (6) CHF (congestive heart failure) Status: Acute (7) COPD (chronic obstructive pulmonary disease) Status: Acute (8) History of hypothyroidism Status: Acute (9) History of pancreatitis Status: Acute (10) Chronic kidney disease Status: Acute (11) Right retinal detachment Status: Acute (12) History of hepatitis Status: Acute (13) History of kidney stones Status: Acute MDD, single episode, severe, with psychotic features Alcohol use disorder, moderate R/O Neurocognitive disorder (needs further assessment as depression is treated and patient abstains from alcohol) - Laboratory Labs: 05/12/17 07:03 05/12/17 07:03 Date of Admission: 05/09/17 17:45 Chief complaint: SI History of Present Illness: Patient is a 76-year-old , retired male who was admitted to [facility] on 05/09/17 from [facility]. Patient lives in [place] with his . He went to ED due to multiple falls and while there endorsed SI, paranoia reported by . On interview, patient is pleasant and cooperative. He reports being very depressed, worse for the past year, exacerbated by pain due to stenosis and lifestyle changes due to this, including loss of interests/activities/ socialization. His continues to work/travel. He endorses low energy, low appetite with weight loss, suicidal thoughts but no intent/plan. He denies any psych history prior to 4 years ago when he began having chronic medical issues. He denies any psychotropic use. He went to [place] for an evaluation but "told them he didn't want any harmful meds." He reports drinking 4-5 beers daily and denies any hx of withdrawal symptoms or seizures. However, seizures are listed in past medical history so must clarify this with someone other than patient. He does report being a cigar smoker (3-4/ day) for 40+ years though not currently. He denies other drug use or hx of substance use treatment. His has reported increasing paranoia, delusions that someone is trying to take the home - he has called the police, hired an rn practitioner. He bought a gun without his 's knowledge after she removed them all from the house (he used to [place]); she found the receipt. He denies AVH. 05/09/17-CT head without contrast [facility]: The brain parenchyma demonstrates. Ventricular and subcortical areas of low attenuation most consistent with chronic ischemic microvascular disease.Occupying mass or shift of midline structures is evident. Intracranial hemorrhage or acute territorial infarct is evident. Impression no acute intracranial process. Depression: Increased Anxiety, Increased Irritability, Loss of Interest in Activities, Isolating Oneself From Friends and Family, Loss of Energy, Sleeping More Than Usual, Feelings of Worthlessness, Feelings of Guilt, Recurrent Thoughts of or Suicide, Changes in Appetite, Significant Weight Loss, Back Pain, Hopelessness, Unhappiness Psychosis: Delusions Hospital Course This is a general summary of the patient's hospital course. For more details refer to the complete medical record. Hospital course: Assessment Delusions and paranoia associated with severe depression Alcohol use Spinal stenosis causing chronic low back and lower extremity pain Hypertension Coronary artery disease (CABG 5 in March [address] 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 We'll need to monitor patient closely for alcohol withdrawal. PRN Serax and Ativan orders entered. Start thiamine, folate and multivitamin. Suspect he will have increased pain given he will not be able to medicate with alcohol. Will make acetaminophen available when necessary. Might consider scheduling this if he is having quite a bit of pain. Patient may self catheter as needed. 05/10/17 Psych: Started Cymbalta 30mg PO daily to target depression, pain. 05/11/17 Psych: Plan to continue current care, discuss symptoms, treatment and safety concerns with . 05/12/17 Psych: Start Abilify 1mg PO daily in AM to target paranoia/delusions. 05/13/17 Psych: Continue current care for the time being and assess response/ tolerance to starting Abilify. Will likely increase Cymbalta to 30mg PO BID soon to target mood, pain. 05/13/17 19:18 Fall without LOC on 05/13/17, minor head injury with pain to left parietal region. Neurovascularly intact and VSS. Will have nsg staff repeat neuro checks tonight and again in am. Labs done on 05/12/17 were very stable. Hold ASA on . Head CT done earlier today was negative for acute findings. 05/14/17 17:44 Pt mood improved. Continue current care 05/15/17 11:14 Remains depressed but no S/I. Continue current care 05/16/17 Medically stable, no evidence to support concussion or neuro compromise following fall on 05/13. VSS, noted bradycardia in the 50s, asymptomatic (he does take Coreg). 05/16/17 Psych: Will increase Cymbalta to 30mg PO BID to target mood, anxiety. Recommend individual counseling and psychiatric care after discharge to AL, no access to EtOH. Continuing to work on safe discharge plan in conjunction with as patient remains high risk for suicide. 05/17/17 Psych: Continue current care -attempting to find facility and make safe discharge plans as above. 05/18/17 Psych: Continue current care. For safety of patient, I believe patient will need to be discharged directly to AL rather than returning home as his is not able to provide 24/7 supervision. Another AL assessing today. Continue current care otherwise; patient is benefitting from continued socialization and therapies on unit. 05/19/17 Psych: Continue current care - will discuss Coreg dosing with hospitalist as I am concerned bradycardia may lead to more fatigue and less motivation for patient to participate in activities, etc. 05/20/17 Psych: Continue current care - will discharge directly to safe environment at AL once available. Patient will not have access to meds or alcohol. I do not feel is able to adequately to supervise for safety at home. 05/21/17 12:42 Doing well. Continue current care 05/22/17 12:38 Doing well. Continue current care 05/23/17 10:58 Plan D/C for tomorrow 05/24/17 Psych: Met with patient and prior to discharge and discussed diagnoses, treatment, follow up, etc. Stressed importance of f/u, avoiding EtOH , and recommended formal driving evaluation before he drives again. They expressed understanding and expressed appreciation for his care. He agrees to f/ u for med management as well as individual therapy. Patient will not have access to medications, weapons/firearms at [facility] facility. Discharged with to live at [facility] (she will remain in the home). Discharge Plan - Med Rec/Dispo Referrals/Follow Up: Merlin Manuel MD [Other] [facility] [Provider Group] ([facility]17 at 11:00 am for Therapy follow-up. . Lisa Benavides APRN on 06/07/17 at 11:00 am for Med Management. [facility] Aldana [address] [place] [address] [place] [id number]) Additional Instructions: Discharge Diagnosis: Reasons for Admission: Increasing paranoia, delusions that someone is trying to take the home. IN CASE OF PSYCHIATRIC EMERGENCY, CONTACT [facility] STAFF AT [phone] ( available 24 hrs daily). Prescriptions: New Folic Acid [Folate] 1 mg PO DAILY tab PEG 3350 17gm PACKET [Miralax] 17 gm PO DAILY packet Senna + Docusate [Senna Plus Tablet] 1 tab PO BID tab Thiamine HCl 100 mg PO DAILY tab Latanoprost [Xalatan] 1 drops LEFT EYE HS bottle Multi-Vitamin Plain [Theragran] 1 tab PO DAILY tab Aspirin Chewable [ASA] 81 mg PO DAILY tab.chew Acetaminophen [Tylenol] 650 mg PO Q5H PRN tab PRN Reason: Discomfort Mag-Al + Sim Oral Liq [Maalox Plus] 30 ml PO Q4H PRN udc PRN Reason: Indigestion Oxybutynin IR [Ditropan] 5 mg PO TID tab Sodium Chloride 5% Eye Oint [Esau-128] 1 applicatio LEFT EYE DAILY tube Tamsulosin [Flomax] 0.4 mg PO DAILY cap ARIPiprazole [Abilify] 1 mg PO DAILY 60 Days #30 tab Duloxetine [Cymbalta] 30 mg PO BID 30 Days #60 cap Continue Pravastatin [Pravachol] 40 mg PO HS Nitroglycerin 0.4 mg SL PRN Carvedilol 6.25 mg PO 08, Finasteride [Proscar] 5 mg PO DAILY Tamsulosin HCl 0.4 mg PO DAILY Oxybutynin Chloride 5 mg PO TID Aspirin Chewable [ASA] 81 mg PO DAILY - Disposition Discharged Home, Self-Care
== END 2017-05-24 11:05 | disposition home or self-care (01) | DRG 885 ==
LOC: GEN 17:45
PROVIDERS: ADMIT Psychiatry & Neurology Psychiatry; ATTEND Psychiatry & Neurology Psychiatry